=== PATIENT | female | born 1980 | race Caucasian/White ===

== ENCOUNTER → 2017-09-07 | Outpatient (CLI) | payer OTHER ==
[~2017-09-07] MED LIST: ALBU3IS INH; ALBU90OI INH; ALBU90OI6 INH; ALPR.5 PO; ALPR1 PO; ATOR80 PO; BISA5EC PO; BUDE.25 NEB; BUDE6HFA INH; BUTASPCAFT PO; Bactroban22 GM TOP; Benadryl 50 mg50 MG PO; CHOL10002 PO; CIPR250 PO; CLIN150 PO; CLIN300 PO; CLON.5 PO; CYCL10 PO; Cleocin HCl300 MG PO; DULO60 PO; Duoneb 2.5-0.5 M3 ML INH; ENOX40I SC; ESTR.1TPW TD; ESTR2 PO; FURO20 PO; GABA100; HYDACE10B PO; HYDMOR2 PO; HYDMOR4 PO; IBUP600 PO; IBUP800 PO; K-Dur20 MEQ PO; KETO10 PO; LAMO100 PO; LATUDA20 MG PO; LISHYD2025 PO; LORTAB 10-3251 EACH PO; Lasix20 MG PO; METF500; METF500C PO; METFORMIN HCL500 MG PO; Mirtazapine7.5 MG PO; NAPR500 PO; Nicorette4 MG PO; OLAN5 PO; OXYC5 PO; POLTRIOPSO OU; POTCHL10ER PO; POTCHL20ER PO; PRAZ1 PO; PRAZ2 PO; PRED10 PO; PROP10 PO; Percocet 5-3251 EACH PO; Prednisone20 MG PO; SERT100; SERT100 PO; SERT50; SERT50 PO; SULTRIDS; Silvadene20 GM TOP; TOBR.3OPSO LEFTEYE; TOPI50 PO; TOPIRAMATE ER50 MG PO; TRAM50; TRAM50 PO; TRIA15CR3; Tamiflu75 MG PO; Ultram50 MG PO; VENL75ER PO; Ventolin Soln3 ML INH; XARELTO20 MG PO; Zithromax250 MG PO; Zofran Odt4 MG SL; [UNRECOGNIZED DRUG - OTHER] TOP
[2017-09-09 12:38] LABS: HPV Genotype 16 Not Detected (NOTDET); HPV Genotype 18 Not Detected (NOTDET)
[2017-09-13 20:27] LABS: HPV High Risk Other Not Detected (NOTDET)
== END | disposition home or self-care (01) ==
LOC: LAB 16:07
PROVIDERS: Obstetrics & Gynecology
DX: Z01.419 Encounter for gynecological examination (general) (routine) without abnormal findings (principal)
CPT/HCPCS: 87624; G0123

== ENCOUNTER → 2018-03-17 | Outpatient (CLI) | payer OTHER ==
[~2018-03-17] MED LIST changes: -ALPR.5 PO; -BUDE6HFA INH; -DULO60 PO; -LAMO100 PO; -LATUDA20 MG PO; -METF500C PO; -PRAZ1 PO; -TRIA15CR3; -[UNRECOGNIZED DRUG - OTHER] TOP
== END ==
LOC: LAB 09:41 → LAB SHORT 09:41
PROVIDERS: Nurse Practitioner Family
DX: E24.9 Cushing's syndrome, unspecified (principal); E66.01 Morbid (severe) obesity due to excess calories
CPT/HCPCS: 81050

== ENCOUNTER → 2018-03-20 | Outpatient (CLI) | payer OTHER ==
[2018-03-20 10:52] LABS: U Amphetamine Screen Not Detected; U Barbituate Screen Not Detected; U Benzodiazapine Screen Not Detected; U Buprenorphine Screen Not Detected; U Cannabinoids Screen DETECTED; U Cocaine Screen Not Detected; U Methadone Screen Not Detected; U Methamphetamine Screen Not Detected; U Opiates Screen Not Detected; U Oxycodone Screen Not Detected; U Phencyclidine Screen Not Detected; U Propoxyphene Screen Not Detected
== END ==
LOC: OLS 08:30 → LAB SHORT 08:30
PROVIDERS: Psychiatry & Neurology Psychiatry
DX: Z51.81 Encounter for therapeutic drug level monitoring (principal); Z79.899 Other long term (current) drug therapy

== ENCOUNTER 2018-03-27 00:31 | Day surgery (SDC) | payer OTHER ==
[2018-03-27] MEDS ORDERED: BUDE6HFA INH (09:09)
[2018-03-27] MEDS ORDERED: METF500C PO (09:10)
[2018-03-27] MEDS ORDERED: CYCL10 PO (09:10)
[2018-03-27] MEDS ORDERED: TRIA15CR3 (09:10)
[2018-03-27] MEDS ORDERED: ALPR.5 PO (09:11)
[2018-03-27] MEDS ORDERED: DULO60 PO (09:12)
[2018-03-27] MEDS ORDERED: LAMO100 PO (09:12)
[2018-03-27] MEDS ORDERED: [UNRECOGNIZED DRUG - OTHER] TOP (09:15)
[2018-03-27] MEDS ORDERED: PRAZ1 PO (09:16)
[2018-03-27] MEDS ORDERED: LATUDA20 MG PO (09:16)
== END 2018-03-27 08:53 | disposition home or self-care (01) ==
LOC: ATC 00:31
DX: E24.9 Cushing's syndrome, unspecified (principal); E66.01 Morbid (severe) obesity due to excess calories; I10 Essential (primary) hypertension; E78.00 Pure hypercholesterolemia, unspecified; J45.909 Unspecified asthma, uncomplicated; F31.9 Bipolar disorder, unspecified
CPT/HCPCS: 36415; 80400; 82533; 96372; J0834

== ENCOUNTER 2018-09-21 14:11 | Inpatient (IN) | payer OTHER ==
[~2018-09-21] VITALS: Ht 170.2 cm; Wt 169.5 kg
[~2018-09-21 14:11] MED LIST changes: +ALPR.5 PO; +BUDE6HFA INH; +DULO60 PO; +LAMO100 PO; +LATUDA20 MG PO; +METF500C PO; -POTCHL10ER PO; +PRAZ1 PO; +TRIA15CR3; +ZESTORETIC 20-1 EAC1 PO; +[UNRECOGNIZED DRUG - OTHER] TOP
[2018-09-21 16:13] LABS: BASOPHILS ABSOLUTE AUTO 0.03 K/mm3 (0.00-0.23); BASOPHILS PERCENT AUTO 0 % (0-2); EOSINOPHILS ABSOLUTE AUTO 0.13 K/mm3 (0.00-0.68); EOSINOPHILS PERCENT AUTO 2 % (0-6); Hematocrit 46.9 % (33.0-51.0); Hemoglobin 15.6 g/dL (11.5-16.0); IMMATURE GRAN ABSOLUTE AUTO 0.03 K/mm3 (0.00-0.10); IMMATURE GRAN PERCENT AUTO 0 % (0-1); LYMPHOCYTES ABSOLUTE AUTO 2.64 K/mm3 (0.84-5.20); LYMPHOCYTES PERCENT AUTO 37 % (21-46); MONOCYTES ABSOLUTE AUTO 0.34 K/mm3 (0.16-1.47); MONOCYTES PERCENT AUTO 5 % (4-13); Mean Corpuscular HGB Conc 33.3 g/dL (31.5-36.5); Mean Corpuscular Volume 96 fL (80-100); Mean Platelet Volume 10.9 fL (9.1-12.4); NEUTROPHILS ABSOLUTE AUTO 4.02 K/mm3 (1.96-9.15); NEUTROPHILS PERCENT AUTO 56 % (41-73); Platelet Count 168 K/mm3 (150-400); RDW Coefficient Variation 13.6 % (11.7-14.2); RDW Standard Deviation 48.2 fL (35.1-46.3); Red Blood Cell Count 4.88 M/mm3 (3.80-5.20); White Blood Cell Count 7.19 K/mm3 (4.00-11.30)
[2018-09-21 16:41] LABS: Alanine Aminotransfer (ALT/SGP 46 U/L (12-78); Albumin, Blood 3.4 g/dL (3.4-5.0); Albumin/Globulin Ratio 0.9 (0.8-1.8); Alk Phos 48 U/L (50-136); Anion Gap 7 mmol/L (6-16); Aspartate Aminotrans (AST/SGOT 30 U/L (12-37); Bilirubin, Total 0.2 mg/dL (0.1-1.0); Blood Urea Nitrogen 13 mg/dL (8-24); Bun/Creatinine Ratio 17.4 (12.0-20.0); CO2, Blood 25 mmol/L (21-32); Chloride, Blood 103 mmol/L (98-108); Creatinine, Blood 0.75 mg/dL (0.40-1.00); Globulin, Blood 3.9 g/dL (2.2-4.0); Glomerular Filtration Rate >60 (60-); Glucose, Blood 89 mg/dL (70-99); Potassium, Blood 4.2 mmol/L (3.5-5.5); Sodium, Blood 135 mmol/L (136-145); Total Protein, Blood 7.3 g/dL (6.4-8.2)
[2018-09-21] MEDS ORDERED: FLUO10 PO (21:52)
[2018-09-21] MEDS ORDERED: QUET200 PO (21:53)
--- NOTE | 2018-09-22 00:34 | NUR ---
2156 PT ARRIVED TO ROOM FROM ER IN STABLE CONDITION. REPORTS PAIN IN R GREAT TOE. WILL GIVE MEDS ORDERED AND EVAL FOR EFFECT. R GREAT TOE IS PURPLE. NO OTHER APPARENT SIGNS OF DISTRESS. CALL LIGHT IS IN REACH.
--- NOTE | 2018-09-22 00:38 | NUR ---
PT ASKING IF WE CAN CALL THE DR TO GET SOMETHING MORE FOR PAIN, HOWEVER I EXPLAINED TO HER THAT SHE HAS FENTANYL THAT SHE COULD HAVE RIGHT NOW. ADMINISTERED FENTANYL. PT WANTS TO KNOW AT WHAT POINT WE COULD CALL THE DR FOR SOMETHING MORE FOR THE PAIN, STATES THE FENTANYL IS JUST NOT DOING ENOUGH FOR THE PAIN. I EXPLAINED THAT SHE CURRENTLY HAS 2 DIFFERENT PAIN MEDICATIONS ORDERED AND THAT IF SHE HAD ALREADY TAKEN BOTH AND IT WAS NOT GOING TO BE TIME AGAIN TO TAKE THEM WITHIN A REASONABLE AMOUNT OF TIME AND HER PAIN WAS A SIGNIFICANTLY HIGH NUMBER THEN WE WOULD CALL. I ALSO WENT OVER THE PAIN SCALE WITH HER WHEN SHE FIRST ARRIVED, I SHOWED HER THE PAIN SCALE FACES ON HER BOARD IN HER ROOM. SHE WAS REPORTING A 9 OR 10 OUT OF PAIN BUT I EXPAINED HOW MUCH PAIN, AND WHAT HER FACE WOULD LOOK LIKE IF IT WAS A 10 VS 0 BEING NONE. I TOLD HER THAT ME LOOKING AT HER FACE SHE LOOKED LIKE ABOUT AN 8 FOR THE FACE SCALE AND NOT QUITE THE SEVERE FACE OF A 10, SHE AGREED THAT IT WAS NOT QUITE SEVERE ENOUGH FOR HER TO CALL IT A 10. SHE DECIDED THAT A 5 WOULD BE THE NUMBER SHE WOULD FEEL LIKE SHE NEEDED SOMETHING FOR PAIN AND BELOW THAT WOULD BE TOLERABLE, I ASKED HER TO CALL ME WHEN IT GOT TO A 4. WILL CONT TO MONITOR PT. NO OTHER APPARENT SIGNS OF DISTRESS. CALL LIGHT IS IN REACH.
--- NOTE | 2018-09-22 00:45 | NUR ---
0014 PT REQUESTED AND RECIEVED PAIN MEDICATION. PT ASKED ABOUT CALLING THE DR AGAIN FOR SOMETHING MORE FOR HER PAIN. SHE DESCRIBES IT A "BURNING" PAIN. I LET HER KNOW THAT SOON SOMEONE ELSE CALLED FOR SOMETHING URGENT THAT I WOULD JOIN THAT CALL TO TALK TO THE DR. PT HAS 2 PAIN MEDS ORDERED, SOMETHING MORE IS NOT URGENT AT THIS TIME. WILL MONITOR FOR EFFECT. NO OTHER APPARENT SIGNS OF DISTRESS. CALL LIGHT IS IN REACH.
--- NOTE | 2018-09-22 02:08 | NUR ---
PT LYING IN BED,EYES CLOSED, APPEARS TO BE RESTING. BREATHING IS EVEN, UNLABORED. NO APPARENT SIGNS OF DISTRESS. CALL LIGHT IS IN REACH.
--- NOTE | 2018-09-22 03:41 | NUR ---
PT REQUESTED AND RECIEVED PAIN MEDICATION AT 0306. PT IS NOW CURRENTLY LYING IN BED, EYES CLOSED, APPEARS TO BE RESTING. BREATHING IS EVEN, UNLABORED. NO APPARENT SIGNS OF DISTRESS. CALL LIGHT IS IN REACH.
--- NOTE | 2018-09-22 03:41 | NUR ---
PT IS AAO X 4, ON RA. REPORTS PAIN IN R GREAT TOE, HAS RECIEVED MULT DOSES OF PERCOCET AND FENTANYL. BS WAS 127. DR BIRD IS CONSULTING, POSS PROCEDURE TODAY.
[2018-09-22 05:16] LABS: Hematocrit 45.8 % (33.0-51.0); Hemoglobin 14.5 g/dL (11.5-16.0); Mean Corpuscular HGB 30.9 pg (26.0-34.0); Mean Corpuscular HGB Conc 31.7 g/dL (31.5-36.5); Mean Corpuscular Volume 98 fL (80-100); Mean Platelet Volume 11.4 fL (9.1-12.4); Platelet Count 141 K/mm3 (150-400); RDW Coefficient Variation 13.7 % (11.7-14.2); RDW Standard Deviation 48.8 fL (35.1-46.3); Red Blood Cell Count 4.69 M/mm3 (3.80-5.20); White Blood Cell Count 5.89 K/mm3 (4.00-11.30)
[2018-09-22 05:35] LABS: International Normalized Ratio 0.97
--- NOTE | 2018-09-22 05:39 | NUR ---
0444 PT REQUESTED AND RECIEVED PAIN MEDS, WILL EVAL FOR EFFECT. NO OTHER APPARENT SIGNS OF DISTRESS. CALL LIGHT IS IN REACH.
[2018-09-22 05:52] LABS: Anion Gap 7 mmol/L (6-16); Blood Urea Nitrogen 17 mg/dL (8-24); Bun/Creatinine Ratio 22.1 (12.0-20.0); CO2, Blood 25 mmol/L (21-32); Chloride, Blood 105 mmol/L (98-108); Creatinine, Blood 0.77 mg/dL (0.40-1.00); Glomerular Filtration Rate >60 (60-); Glucose, Blood 101 mg/dL (70-99); Potassium, Blood 4.4 mmol/L (3.5-5.5); Sodium, Blood 137 mmol/L (136-145)
--- NOTE | 2018-09-22 05:53 | NUR ---
PT LYING IN BED, EYES CLOSED, APPEARS TO BE RESTING. BREATHING IS EVEN, UNLABORED. NO APPARENT SIGNS OF DISTRESS. CALL LIGHT IS IN REACH. NO OTHER CHANGES THIS SHIFT.
--- NOTE | 2018-09-22 06:47 | NUR ---
0669 PT REQUESTED AND RECIEVED PAIN MEDICATION, WILL EVAL FOR EFFECT. NO OTHER APPARENT SIGNS OF DISTRESS. CALL LIGHT IS IN REACH.
--- NOTE | 2018-09-22 11:35 | NUR ---
PATIENT DESTATS TO HIGH 80'S WHILE ASLEEP. CONT PULSE OX IS ON, CPAP AT THE BEDSIDE BUT REFUSED TO BE WORN BY THE PATIENT STATES THAT IT MAKES HER ANXIOUS. PATIENT ASKED TO HAVE THE CONTINUOUS PULSE OX D/C IT KEPT BEEPING WHILE SHE WAS ASLEEP. RN DISCUSSED THE RISKS OF NOT USING THE CONTINUOUS PULSE OX. PATIENT SIGNED REFUSAL FORM. RN WILL CONTINUE TO MONITOR.
--- NOTE | 2018-09-22 13:40 | NUR ---
Echocardiogram using 9.0ml of agitated saline contrast performed.
--- NOTE | 2018-09-22 15:15 | NUR ---
PATIENT IS VERY ANXIOUS. CONSIDERING LEAVING AMA. BP 186/101. DR CHEUNG NOTIFIED, SAID TO STOP THE HEPARIN DRIP TO ALLOW PATIENT TO GO OUTSIDE IF SHE PLEASES TO SMOKE. FAMILY AT THE BEDSIDE.
--- NOTE | 2018-09-22 16:09 | NUR ---
PHARMACY NOTIFIED THAT PATIENT WOULD BE DISCONNECTED FROM HEPARIN DRIP PER DR. CHEUNG TO GO OUTSIDE. PATIENT FAMILY TOOK PATIENT VIA WHEELCHAIR.
--- NOTE | 2018-09-22 17:56 | NUR ---
SHIFT SUMMARY PATIENT A&O X4, INDEPENDENT IN THE ROOM. RIGHT BIG TOE IS DARK PURPLE IN COLOR. PATIENT HAS COMPLAINTS OF SEVERE PAIN IN THIS TOE THROUGHOUT THE SHIFT. RN MEDICATED PER EMAR. PATIENT VOMITTED X1 THIS SHIFT RN MEDICATED PER E NOV. HEPARIN DRIP @ 39.9 ML/HR. CLEAR LIQUIDS. PATIENT HAS BEEN EXTREMELY ANXIOUS THIS SHIFT, AT ONE POINT WANTED TO LEAVE AMA BECAUSE SHE WANTED TO GO OUTSIDE TO SMOKE. REFUSED NICOTINE PATCH. 02 @ 2 L NC, PATIENT TAKES OFF THROUGHOUT SHIFT. O2 SATS DROP TO MID TO HIGH 80S WHEN LYING DOWN. REFUSES TO WEAR CPAP, REFUSAL FOR CONTINUOUS PULSE OX SIGNED. BREATHING TREATMENTS PER RT. PATIENT CURRENTLY RESTING. CALL LIGHT WITHIN REACH. NO ACUTE CHANGES. RN WILL CONTINUE TO MONITOR.
--- NOTE | 2018-09-23 06:16 | NUR ---
SHIFT SUMMARY PT CONTINUED TO HAVE SIGNIFICANT PAIN IN TOE. PT REPORTED 10/10 EARLY IN THE SHIFT. PT RESPONDED WELL TO TX. PT DID HAVE EPISODE OF N/V THAT WAS RELIEVED PER EMAR. PT STATES PAIN WOKE HER UP NUMEROUS TIMES THROUGH THE NIGHT. PT IS CURRENTLY BREATHING EASY AND RESTING.
[2018-09-23 08:33] LABS: BASOPHILS ABSOLUTE AUTO 0.02 K/mm3 (0.00-0.23); BASOPHILS PERCENT AUTO 0 % (0-2); EOSINOPHILS ABSOLUTE AUTO 0.08 K/mm3 (0.00-0.68); EOSINOPHILS PERCENT AUTO 1 % (0-6); Hematocrit 43.9 % (33.0-51.0); Hemoglobin 14.3 g/dL (11.5-16.0); IMMATURE GRAN ABSOLUTE AUTO 0.03 K/mm3 (0.00-0.10); IMMATURE GRAN PERCENT AUTO 1 % (0-1); LYMPHOCYTES ABSOLUTE AUTO 1.87 K/mm3 (0.84-5.20); LYMPHOCYTES PERCENT AUTO 33 % (21-46); MONOCYTES ABSOLUTE AUTO 0.35 K/mm3 (0.16-1.47); MONOCYTES PERCENT AUTO 6 % (4-13); Mean Corpuscular HGB 31.4 pg (26.0-34.0); Mean Corpuscular HGB Conc 32.6 g/dL (31.5-36.5); Mean Corpuscular Volume 96 fL (80-100); NEUTROPHILS PERCENT AUTO 58 % (41-73); Platelet Count 137 K/mm3 (150-400); RDW Coefficient Variation 13.5 % (11.7-14.2); RDW Standard Deviation 47.7 fL (35.1-46.3); Red Blood Cell Count 4.56 M/mm3 (3.80-5.20); White Blood Cell Count 5.65 K/mm3 (4.00-11.30)
[2018-09-23] MEDS ORDERED: XARELTO20 MG PO (11:29)
[2018-09-23] MEDS ORDERED: CLOP75 PO (11:29)
--- NOTE | 2018-09-23 12:12 | NUR ---
PATIENT DISCHARGE: PATIENT DISCHARGED TO HOME THIS SHIFT. MEDICATION RECONCILIATION COMPLETED; MED L[facility] [place]. DISCHARGE EDUCATION COMPLETED WITH PATIENT AND FAMILY. PATIENT TRANSPORTED TO EXIT BY WHEELCHAIR AT 1209. PATIENT DEPARTED [facility] VIA PRIVATE AUTO.
[2018-10-10] MEDS ORDERED: Monodox100 MG PO (13:49)
== END 2018-09-23 12:06 | disposition home or self-care (01) | DRG 300 ==
LOC: ER 14:11 → MEDS 19:36 → ENPENDDIS 09-23 11:00 → MEDS 09-23 12:06
PROVIDERS: Hospitalist; Nurse Practitioner Acute Care; Physician Assistant; ADMIT Family Medicine
DX: E11.51 Type 2 diabetes mellitus with diabetic peripheral angiopathy without gangrene (principal); Z68.43 Body mass index [BMI] 50.0-59.9, adult; I74.3 Embolism and thrombosis of arteries of the lower extremities; I99.8 Other disorder of circulatory system; F17.210 Nicotine dependence, cigarettes, uncomplicated; I10 Essential (primary) hypertension; E66.01 Morbid (severe) obesity due to excess calories; F32.9 Major depressive disorder, single episode, unspecified; F43.10 Post-traumatic stress disorder, unspecified; F41.9 Anxiety disorder, unspecified; J44.9 Chronic obstructive pulmonary disease, unspecified; G47.33 Obstructive sleep apnea (adult) (pediatric); Z23 Encounter for immunization; Z79.84 Long term (current) use of oral hypoglycemic drugs; Z79.1 Long term (current) use of non-steroidal anti-inflammatories (NSAID); Z79.890 Hormone replacement therapy; Z79.51 Long term (current) use of inhaled steroids; Z79.899 Other long term (current) drug therapy; Z88.1 Allergy status to other antibiotic agents; Z88.5 Allergy status to narcotic agent; Z88.0 Allergy status to penicillin; Z88.2 Allergy status to sulfonamides; Z88.8 Allergy status to other drugs, medicaments and biological substances; Z90.710 Acquired absence of both cervix and uterus
CPT/HCPCS: 36415; 80048; 80053; 82947; 83605; 85025; 85027; 85610; 85730; 90686; 93005; 93010; 93306; 93922; 93926; 94640; 94660; 94760; 94762; 96374; 96375; 96376; 99285-25; J1170; J1644; J2405; J3010

== ENCOUNTER 2018-10-11 18:36 | Inpatient (IN) | payer OTHER ==
[~2018-10-11] VITALS: Ht 170.2 cm; Wt 173.9 kg
[~2018-10-11 18:36] MED LIST changes: +CLOP75 PO; +FLUO10 PO; +Monodox100 MG PO; +QUET200 PO
[2018-10-11 19:21] LABS: BASOPHILS ABSOLUTE AUTO 0.01 K/mm3 (0.00-0.23); BASOPHILS PERCENT AUTO 0 % (0-2); EOSINOPHILS ABSOLUTE AUTO 0.01 K/mm3 (0.00-0.68); EOSINOPHILS PERCENT AUTO 0 % (0-6); Hematocrit 40.4 % (33.0-51.0); Hemoglobin 13.5 g/dL (11.5-16.0); IMMATURE GRAN ABSOLUTE AUTO 0.28 K/mm3 (0.00-0.10); IMMATURE GRAN PERCENT AUTO 2 % (0-1); LYMPHOCYTES ABSOLUTE AUTO 0.83 K/mm3 (0.84-5.20); LYMPHOCYTES PERCENT AUTO 7 % (21-46); MONOCYTES ABSOLUTE AUTO 0.93 K/mm3 (0.16-1.47); MONOCYTES PERCENT AUTO 8 % (4-13); Mean Corpuscular HGB 31.3 pg (26.0-34.0); Mean Corpuscular HGB Conc 33.4 g/dL (31.5-36.5); Mean Corpuscular Volume 94 fL (80-100); Mean Platelet Volume 11.1 fL (9.1-12.4); NEUTROPHILS ABSOLUTE AUTO 10.17 K/mm3 (1.96-9.15); NEUTROPHILS PERCENT AUTO 83 % (41-73); Platelet Count 132 K/mm3 (150-400); RDW Coefficient Variation 13.5 % (11.7-14.2); RDW Standard Deviation 46.9 fL (35.1-46.3); Red Blood Cell Count 4.31 M/mm3 (3.80-5.20); White Blood Cell Count 12.23 K/mm3 (4.00-11.30)
[2018-10-11 19:33] LABS: Albumin/Globulin Ratio 0.7 (0.8-1.8); Bilirubin, Total 1.3 mg/dL (0.1-1.0); Bun/Creatinine Ratio 12.8 (12.0-20.0); Creatinine, Blood 1.17 mg/dL (0.40-1.00); Globulin, Blood 4.3 g/dL (2.2-4.0); Potassium, Blood 3.6 mmol/L (3.5-5.5); Total Protein, Blood 7.3 g/dL (6.4-8.2)
--- NOTE | 2018-10-11 23:45 | NUR ---
PT ARRIVAL. PT ARRIVED ON UNIT APROX 2333, PT WAS ABLE TO SELF TRANSFER FROM [place] TO BED BUT IT WAS VERY DIFFICULT AND PAINFUL. PT WAS ADMITTED DUE TO A LARGE ABCESS/CELLULITTIS TO HER LEFT UPPER THIGH/GROIN AREA. TELE WAS PLACED, NSR IN THE 80'S PER [employer] JOINTER. PT'S BP 155/95. TRACE EDEMA NOTED TO THE PT'S BLE. L/S SLIGHT WHEEZES HEARD T/O, PT IS ON RA WITH STATS >90%. RESPERAITIONS ARE EVEN AND UNLABORED. BT PRESENT AND HYPERACTIVE, ABD IS SOFT AND NONTENDER TO PALP. PT IS IN CONTACT ISO FOR R/O C.DIFF DUE TO PT'S REPORT OF DIARRHEA AT HOME AND R/O MRSA DUE TO A HISTORY OF MRSA IN A WOUND IN 2000. MRSA SWAB WAS NOT ABLE TO BE OBTAINED DUE TO THE FACT THE PT HAD ALREADY BEEN GIVEN IV ANTIBIOTICS IN THE ED. CALL LIGHT IN REACH, BED IS LOCKED AND LOW, WILL CONTINUE TO MONITOR.
[2018-10-12 04:19] LABS: BASOPHILS ABSOLUTE AUTO 0.01 K/mm3 (0.00-0.23); BASOPHILS PERCENT AUTO 0 % (0-2); EOSINOPHILS ABSOLUTE AUTO 0.03 K/mm3 (0.00-0.68); EOSINOPHILS PERCENT AUTO 0 % (0-6); Hematocrit 36.8 % (33.0-51.0); IMMATURE GRAN ABSOLUTE AUTO 0.16 K/mm3 (0.00-0.10); IMMATURE GRAN PERCENT AUTO 2 % (0-1); LYMPHOCYTES ABSOLUTE AUTO 0.95 K/mm3 (0.84-5.20); LYMPHOCYTES PERCENT AUTO 10 % (21-46); MONOCYTES ABSOLUTE AUTO 0.65 K/mm3 (0.16-1.47); MONOCYTES PERCENT AUTO 7 % (4-13); Mean Corpuscular HGB 31.5 pg (26.0-34.0); Mean Corpuscular HGB Conc 32.6 g/dL (31.5-36.5); Mean Platelet Volume 11.1 fL (9.1-12.4); NEUTROPHILS ABSOLUTE AUTO 8.25 K/mm3 (1.96-9.15); NEUTROPHILS PERCENT AUTO 82 % (41-73); Platelet Count 124 K/mm3 (150-400); RDW Coefficient Variation 13.5 % (11.7-14.2); RDW Standard Deviation 47.8 fL (35.1-46.3); Red Blood Cell Count 3.81 M/mm3 (3.80-5.20); White Blood Cell Count 10.05 K/mm3 (4.00-11.30)
[2018-10-12 04:23] LABS: Mean Corpuscular Volume 97 fL (80-100)
[2018-10-12 04:38] LABS: Anion Gap 11 mmol/L (6-16); Blood Urea Nitrogen 15 mg/dL (8-24); Bun/Creatinine Ratio 14.4 (12.0-20.0); CO2, Blood 24 mmol/L (21-32); Calcium, Blood 7.7 mg/dL (8.5-10.1); Chloride, Blood 103 mmol/L (98-108); Creatinine, Blood 1.04 mg/dL (0.40-1.00); Glomerular Filtration Rate >60 (60-); Glucose, Blood 136 mg/dL (70-99); Potassium, Blood 3.3 mmol/L (3.5-5.5); Sodium, Blood 138 mmol/L (136-145)
--- NOTE | 2018-10-12 05:37 | NUR ---
SHIFT SUMMARY. NO ACUTE CHANGES NOTED THIS SHIFT. PT COMPLAINS OF SEVERE PAIN TO HER LEFT GROIN AREA WITH TOUCH OR MOVEMENT. PT'S VS HAVE BEEN STABLE T/O SHIFT. PT DENIES ANY CHEST PAIN/PRESSURE, N/V OR SOB. PT WAS ENCOURAGED TO HAVE FAMILY BRING IN HER HOME CPAP WHILE HERE. PT HAS NOT HAD A BM SINCE ADMIT, UNABLE TO R/O C.DIFF AT THIS TIME. CALL LIGHT IN REACH, BED IS LOCKED AND LOW WILL CONTINUE TO MONITOR UNTIL REPORT IS GIVEN TO ONCOMING RN.
--- NOTE | 2018-10-12 11:00 | NUR ---
Initial palliative care consult: Kaitlyn is a 38 year old with a history of asthma, COPD, back surgeries x 2, DM, morbid obesity, MARTHA, depression and anxiety. She is admitted to PCU for cellulitis of the left groin/upper thigh area. Just prior to my visit, Dr. Cohen had assessed Kaitlyn and pushed on the area of cellulitis. Kaitlyn was in tears and c/o being very painful when this production underwriter entered the room. Nursing notifed and will medicate pt for pain. Kaitlyn's adult son, Jas, is at her bedside. Kaitlyn reports that her right great toe is a bluish/purple color and that she was scheduled to have a procedure at the [facility] at 1100 today which has been postponed. Kaitlyn is agreeable with some conversation while she is painful to help distract her. She has had a powerglide placed to her KERRIE this morning. Current plan is for antibiotics, at this time there is no abcess per pt's report from MD visit. Once Kaitlyn was medicated for pain, she became very sleepy, so this PC visit was cut short as she was falling asleep. PC will continue to follow pt for symptom management and chronic disease management.
--- NOTE | 2018-10-12 14:49 | NUR ---
REPORT TO MAK PARKER IN ICU. PT IS GOING TO ICU 2 FROM SURGERY.
--- NOTE | 2018-10-12 15:06 | NUR ---
PT WITH KNOWN ANXIETY DISORDER-BECAME EXCITABLE UPON INITIAL ENTRY INTO LAB WHEN MULTIPLE STAFF MEMBERS CAME TO PT TO PREP FOR PROCEDURE (E.G., PLACE EKG MONITORING, BP MONITORING, PULSE OXIMETRY, CPAP MASK PLACEMENT, ETC.) HAS KNOWN CELLULITIS TO L INNER THIGH-MARKED. BODY HABITUS WITH MULTIPLE LARGE FOLDS TO LOWER ABDOMEN, REQUIRING TAPED RETRACTION FOR BILATERAL FEMORAL ACCESS. ISABELA-CROSSING TAPE ANCHORED BENEATH PATIENT TO UNDER SURFACE OF PLATFORM. LARGE TORSO BULK WITH CONSTRICTING CROSS-TAPE NECESSITATED NC TO MOUTH WITH HIGH FLOW DUE TO PERSONAL CPAP MACHINE WITHOUT OXYGEN PORT. PT HIGHLY SENSITIVE TO TOUCH, TO ALL AREAS NOT JUST CELLULITUS AREAS. C/O PAIN WITH SIMPLE TOUCH SUCH LIFTING L LEG AWAY FROM TABLETOP PLATFORM EDGE TO PROTECT FOOT. PAIN WITH PLACEMENT OF DRAPE DESPITE VERSED 3 MG IV. ACCESS ATTEMPTED WITH PORTABLE US MACHINE BUT PICTURE QUALITY WAS INADEQUATE, REQUIRING US TECH WITH UPRIGHT, FULL SIZE MACHINE. DESPITE LOCAL ANESTHETIC, PT REACTED WITH OCCASIONAL SCREAMS OF PAIN DURING ADDITIONAL SKIN RETRACTION FOR NEEDLE PLACEMENT TO L FEMORAL A. DIFFICULT TO CONSOLE VERBALLY OR MEDICALLY WITH CONTINUED VERSED AND FENTANYL DOSING. ATIVAN PROVIDED WITH ADDITIONAL SUPPLEMENTS OF VERSED, NEEDED. MINIMAL SITE/SKIN CONTACT ALLOWED PATIENT TO MAXIMIZE SEDATION HOWEVER HR INCREASED STEADILY FROM 85 TO >100 DURING COURSE OF PROCEDURE WITH EPISODES OF AGGITATION. BP STEADILY INCREASED WITH SBP > 200 AND DBP > 100 - TREATED PERIODICALLY WITH HYDRALAZINE DOSING OF 5-15 MG IV PER DOSE. PROCEDURE COMPLETED WITHOUT KNOWN COMPLICATION(S). PT AROUSEABLE TO LIGHT STIMULATION BUT SLEEPS WITH SNORE WHEN UNDISTURBED. WHEN AWAKE, SPEECH IS COHERENT AND APPROPRIATE TO CONTEXT OF SITUATION.
--- NOTE | 2018-10-12 18:59 | NUR ---
END OF SHIFT PT HAS NO PAIN AT THIS TIME, VSS, PT GROIN SITE WNL, PT USES BED BARRIOS, PT HAS HAD AN ELEVATED TEMP
--- NOTE | 2018-10-12 19:52 | NUR ---
Verbal permission to participate in care on 10/12/18.
--- NOTE | 2018-10-12 20:00 | NUR ---
ASSUMED CARE OF PT AT 1900. REPORT RECEIVED AT BEDSIDE. PT GROIN SITE CHECKED WITH OFFGOING RN. HAVE CHECKED PERIPHERAL PULSES BY DOPPLER. OF NOTE PT HAS EDEMATOUS AREA AT INSIDE LEFT THIGH WITH ERRYTHEMIA, WARM TO THE TOUGH. PT STATES AREA IS VERY TENDER TO THE TOUCH. NO HEMATOMA OR OOZING ROM LEFT GROIN ACCESS SITE. PT NEEDS TO HAVE REINFORCED TEACHING ON HER LIMITATIONS WITH LEFT GROIN ACCESS SITE. WILL REVIEW CHART AND PLAN OF CARE FOR THIS PT.
[2018-10-12 23:14] LABS: Hematocrit 37.1 % (33.0-51.0); Hemoglobin 12.1 g/dL (11.5-16.0)
--- NOTE | 2018-10-13 | NUR ---
PT WAS MEDICATED WITH A NORCO 5/325. PT STATES THAT NORCO "NEVER WORKS FOR ME" AND REQUESTS THE DILAUDID. PT STATES THAT THE AREA OF CELLULITIS IS BURNING AND THAT SHE CAN'T STAND THE PAIN. BECOMES VERY ANXIOUS AND COMPLAINS OF INCREASING PAIN AT LEFT INNER THIGH AREA. CONTINUES WITH SWELLING TO SITE. DOES NOT CORRESPOND TO A POTENTIAL FEMORAL BLEED. DID CALL [facility] AND REQUESTED TO DO STAT H/H. THIS ORDER RECEIVED. NO CHANGE IN H/H COMPARED TO PREVIOUS. WILL CONTINUE TO MONITOR SITE FOR S/S BLEED.
--- NOTE | 2018-10-13 05:45 | NUR ---
MEDICATED PT AGAIN WITH NORCO 5/325. PT STATES HER PAIN LEVEL WAS 9/10. HAVE DONE TEACHING ON PAIN MEDICATIONS AND NEEDING TO USE PO MEDS FOR PAIN SHE TOLERATES. PT REMAINS WITH EDEMA AT LEFT INNER THIGH CELLULITIS. NO CHANGES IN SIZE NOTED. DOPPLER PULSES TO LOWER EXTREMITIES. PT TO TRANSFER TO ROOM PCU 12. PT MADE AWARE AND IS ACCEPTING. REPORT GIVEN TO EKITH CAREY.
--- NOTE | 2018-10-13 06:02 | NUR ---
TRANSFER: REPORT RECIEVED FROM STACY PARKER ICU.
--- NOTE | 2018-10-13 06:37 | NUR ---
PATIENT ARRIVED TO [facility] VIA GURNEY FROM ICU AT APPROX 0550. PATIENT ABLE TO PIVOT TRANSFER FROM BED TO BED WITH 2 PERSON ASSIST. PATIENT ALERT AND ORIENTED, GROIN SITE REMAINS UNCHANGED PER STACY RN. NO NEW BLEEDING, HEMATOMAS OR DISCOLORATION NOTED. WILL CONTINUE TO MONITOR AND REPORT TO ONCAJIT DAVISON RN.
--- NOTE | 2018-10-13 19:57 | NUR ---
SHIFT SUMMARY Assumed care at 0700. Report recieved from Mahsa PARKER. Shift assessment completed. Pt on room air. Pt tearful because she stated that she needed to pee and the aid encouraged BSC or bathroom and pt wanted to use the bedpan. Pt states using toilet is painful on her inner thigh. This RN had discussion with pt and encouraged her to use toilet or commode and she was using a toilet at home, before cellulitis treatment with pain medication and antibiotics. Additionally, the goal is to get her as close to her baseline level of functioning as a part of discharge planning. Pt verbalized understanding. Pt agreed to activity - up in chair for meals and using bathroom instead bedpan - if pain is managed to a tolerable level. Pt went on a walk around the 2nd floor with her friends, using a walker, and tolerated activity well. Groin site free of hematoma. Color, sensation, capillary refill, and distal pulses equal BLE. Report given to Mahsa PARKER.
[2018-10-14 04:33] LABS: BASOPHILS ABSOLUTE AUTO 0.02 K/mm3 (0.00-0.23); BASOPHILS PERCENT AUTO 0 % (0-2); EOSINOPHILS ABSOLUTE AUTO 0.05 K/mm3 (0.00-0.68); EOSINOPHILS PERCENT AUTO 1 % (0-6); Hematocrit 34.7 % (33.0-51.0); Hemoglobin 11.5 g/dL (11.5-16.0); IMMATURE GRAN ABSOLUTE AUTO 0.13 K/mm3 (0.00-0.10); IMMATURE GRAN PERCENT AUTO 2 % (0-1); LYMPHOCYTES ABSOLUTE AUTO 0.99 K/mm3 (0.84-5.20); LYMPHOCYTES PERCENT AUTO 12 % (21-46); MONOCYTES ABSOLUTE AUTO 0.53 K/mm3 (0.16-1.47); MONOCYTES PERCENT AUTO 6 % (4-13); Mean Corpuscular HGB 31.2 pg (26.0-34.0); Mean Corpuscular HGB Conc 33.1 g/dL (31.5-36.5); Mean Platelet Volume 11.2 fL (9.1-12.4); NEUTROPHILS ABSOLUTE AUTO 6.83 K/mm3 (1.96-9.15); NEUTROPHILS PERCENT AUTO 80 % (41-73); Platelet Count 152 K/mm3 (150-400); RDW Coefficient Variation 13.7 % (11.7-14.2); RDW Standard Deviation 47.3 fL (35.1-46.3); Red Blood Cell Count 3.69 M/mm3 (3.80-5.20); White Blood Cell Count 8.55 K/mm3 (4.00-11.30)
--- NOTE | 2018-10-14 04:35 | NUR ---
SHIFT SUMMARY: PATIENT DID BETTER WITH PAIN CONTROL THIS SHIFT, PATIENT HAD 1X DILAUDID AND 2 HOURS LATER 2 TABS OF NORCO (BOTH PER MD ORDER). PATIENT ABLE TO GO ALMOST 6 HOURS WIHTOUT ASKING FOR MORE PAIN MEDICATION. PATIENT AMBULATING TO BATHROOM WITH FWW AND NO ASSIST NECESSARY. DISCOLORATION AROUND CELLULITIS APPEARED TO BE SPREADING AT BEGINNING OF SHIFT AND NEW BORDERS MARKED. END OF SHIFT THE DISCOLORATION APPEARED TO BE IMPROVING. PATIENT BED LOW AND LOCKED WITH CLL LIGHT WITHIN REACH AND GOOD COMPLIANCE WITH USE.
[2018-10-14 04:37] LABS: Mean Corpuscular Volume 94 fL (80-100)
[2018-10-14 04:51] LABS: Bun/Creatinine Ratio 18.3 (12.0-20.0); Calcium, Blood 7.7 mg/dL (8.5-10.1); Creatinine, Blood 1.53 mg/dL (0.40-1.00); Potassium, Blood 3.7 mmol/L (3.5-5.5)
--- NOTE | 2018-10-14 15:00 | NUR ---
SHE IS EATING A LATE LUNCH. HER FAMILY VISITED FOR AN HOUR AND ARE NOW GONE. SHE HAS RECEIVED NORCO X2 AND IV DILAUDID X1 THIS SHIFT FOR THE PAIN IN HER L THIGH. THE DERESSING ON HER L GROIN IS D&I WHERE SHE HAD HER ANGIOGRAM. HER L THIGH AND GROIN IS SHINY RED AND SWOLLEN. THERE IS A FLUID BLISTER ON THE INNER UPPER THIGH THAT IS SEEPING CLEAR YELLOW FLUID. IT DRAINS ENOUGH TO MODERATELY SOIL THE PAD UNDER HER BOTTOM. EDEMA IS WORSE IN THE L LEG THAN THE RIGHT. HER OTHER COMPLAINT IS INTERMITTENT NAUSEA WITHOUT EMESIS. RHYS HAS BEEN GIVEN X1. SHE AMBULATED THE HALLS INDEPENDENTLY THIS AM AND HER FAMILY TOOK HER OUTSIDE IN THE W/C THIS AFTERNOON. SHE SAYS SHE HAS A NON-NICOTINE E-CIG. ANOTHER COMPLAINT IS H/A AND GASRTRIC REFLUX. ICEPACK HELPS HER HEAD AND A IRAIDA WAS GIVEN WITH SHORT TERM RELIEF. NOW I WILL MOVE HER TO RM 308 AND GIVE REPORT.
--- NOTE | 2018-10-14 16:27 | NUR ---
TRANSFERRED TO 308 AT 1540 WITH BELONGINGS. REPORT GIVEN TO SHANNA PARKER.
--- NOTE | 2018-10-14 16:33 | NUR ---
PCU 12 TRANSFER TO 308 PT ARRIVE TO ROOM APPROX 1500 VIA W/C. ABLE TO STAND & AMBULATE TO BED HOWEVER FAVORING L LEG. SHE IS DISTRAUGHT, TEARFUL. STATE LLE PAIN /. PRN DILAUDID 1MG IV & XANAX GIVEN, SHE STATE IMMEDIATE RELIEF, NO LONGER EMOTIONAL, CALM, WATCHING TV STATE "HEARTBURN" & POSSIBLE CONSTIPATION, PRN TUMS & MOM GIVEN. L THIGH REDNESS NOTED WITH MILD WEEPING AREA. DRSG L GROIN INTACT, R/T ANGIOGRAM & REVASCULARIZATION RLE/PT, NO CHART NOTES @ THIS TIME REGARDING PROCEDURE. ORIENTED PT TO ROOM & CALL SYSTEM. FLUIDS PROVIDED.
--- NOTE | 2018-10-15 04:46 | NUR ---
SHIFT SUMMARY: PT IS ALERT AND ORIENTED. PT IS CALM AND COOPERATIVE WITH CARE. PT CALLS APPROPRIATELY. PT IS A ONE PERSON ASSIST FOR TRANSFERS. FAMILY IN THE ROOM OVERNIGHT. PT REPORTS L. THIGH PAIN, MEDICATING PER EMAR. PT OUTSIDE ON SEVERAL OCCASIONS WITH FAMILY. PT DENIES NAUSEA, VOMITING, AND SOB. NO ACUTE CHANGES OR COMPLICATIONS OVERNIGHT. BED IN LOW POSITION, CALL LIGHT WITHIN REACH. WILL REPORT TO DAY NURSE.
[2018-10-15 08:50] LABS: Hemoglobin 10.7 g/dL (11.5-16.0); Mean Corpuscular HGB 30.8 pg (26.0-34.0); Mean Corpuscular HGB Conc 33.4 g/dL (31.5-36.5); Mean Corpuscular Volume 92 fL (80-100); Platelet Count 169 K/mm3 (150-400); RDW Coefficient Variation 13.6 % (11.7-14.2); RDW Standard Deviation 45.9 fL (35.1-46.3); Red Blood Cell Count 3.47 M/mm3 (3.80-5.20); White Blood Cell Count 7.98 K/mm3 (4.00-11.30)
[2018-10-15 09:05] LABS: Bun/Creatinine Ratio 22.5 (12.0-20.0); Calcium, Blood 8.8 mg/dL (8.5-10.1); Creatinine, Blood 1.2 mg/dL (0.40-1.00); Potassium, Blood 3.8 mmol/L (3.5-5.5)
[2018-10-15 13:26] LABS: BASOPHILS ABSOLUTE AUTO 0.02 K/mm3 (0.00-0.23); BASOPHILS PERCENT AUTO 0 % (0-2); EOSINOPHILS ABSOLUTE AUTO 0.03 K/mm3 (0.00-0.68); EOSINOPHILS PERCENT AUTO 0 % (0-6); Hematocrit 30.9 % (33.0-51.0); Hemoglobin 10.3 g/dL (11.5-16.0); IMMATURE GRAN ABSOLUTE AUTO 0.23 K/mm3 (0.00-0.10); IMMATURE GRAN PERCENT AUTO 3 % (0-1); LYMPHOCYTES ABSOLUTE AUTO 0.71 K/mm3 (0.84-5.20); LYMPHOCYTES PERCENT AUTO 9 % (21-46); MONOCYTES ABSOLUTE AUTO 0.48 K/mm3 (0.16-1.47); MONOCYTES PERCENT AUTO 6 % (4-13); Mean Corpuscular HGB Conc 33.3 g/dL (31.5-36.5); Mean Corpuscular Volume 93 fL (80-100); Mean Platelet Volume 10.9 fL (9.1-12.4); NEUTROPHILS ABSOLUTE AUTO 6.05 K/mm3 (1.96-9.15); NEUTROPHILS PERCENT AUTO 80 % (41-73); Platelet Count 171 K/mm3 (150-400); RDW Coefficient Variation 13.5 % (11.7-14.2); Red Blood Cell Count 3.32 M/mm3 (3.80-5.20); White Blood Cell Count 7.52 K/mm3 (4.00-11.30)
[2018-10-15 13:49] LABS: Alanine Aminotransfer (ALT/SGP 20 U/L (12-78); Albumin, Blood 1.8 g/dL (3.4-5.0); Albumin/Globulin Ratio 0.4 (0.8-1.8); Alk Phos 71 U/L (50-136); Anion Gap 9 mmol/L (6-16); Aspartate Aminotrans (AST/SGOT 38 U/L (12-37); Bilirubin, Total 0.5 mg/dL (0.1-1.0); Blood Urea Nitrogen 27 mg/dL (8-24); CO2, Blood 25 mmol/L (21-32); CPK Creatine Kinase 265 U/L (26-193); Calcium, Blood 8.9 mg/dL (8.5-10.1); Chloride, Blood 99 mmol/L (98-108); Creatinine, Blood 1.23 mg/dL (0.40-1.00); Globulin, Blood 4.4 g/dL (2.2-4.0); Glomerular Filtration Rate 52 (60-); Glucose, Blood 104 mg/dL (70-99); Potassium, Blood 3.8 mmol/L (3.5-5.5); Sodium, Blood 133 mmol/L (136-145); Total Protein, Blood 6.2 g/dL (6.4-8.2)
[2018-10-15 13:56] LABS: C-REACTIVE PROTEIN, EXT RANGE >19.000 mg/dL (0.000-0.300)
--- NOTE | 2018-10-15 16:06 | NUR ---
SUMMARY PT L LEG CONTINUES SWOLLEN, REDNESS & SWELLING INCREASED FROM PREVIOUS DAY, DR LU ORDER ANOTHER CT @ CONSULT ORTHO. CHANGED IV ANTIBX TO MERREM & VANCO. PT STATE POOR PAIN CONTROL, DR ADD IV DILAUDID 1-2MG q4 PRN FOR BREAKTHRU PAIN, PT STATE EFFECTIVE. DR GILMAN IN TO SEE HER ENCOURAGE ELEVATION OF LEG. SHE IS ABLE TO STAND & IND GO TO BR HOWEVER INCREASED PAIN WITH WT BRG. WBC WNL, NO FEVERS, VSS. SHE IS PLEASANT/COOPERATIVE/APPRECIATIVE.
--- NOTE | 2018-10-15 17:41 | NUR ---
DR GILMAN, DR ELLSWORTH, DR LU BACK TO SEE PT, STATE INCREASED CONCERNS R/T L LEG CELLULITIS/SWELLING, STATE POSSIBLE NEED TO [facility]. PT MADE NPO @ THIS TIME. DR LU ATTEMPTING TO ARRANGE TRANSFER.
--- NOTE | 2018-10-15 19:25 | NUR ---
"DAY SURGERY RN | PATIENT TRANSFERRED TO PACU FOR PREOP This RN and Winnie Cueva RN transferred patient to PACU for pre-op. Winnie Cueva RN went through chart for pre-surgical checklist. Dr. Zheng spoke with patient and updated plan. Dr. Luu saw the patient as well. Lactated Ringers started per orders TKO. Report to OR nurse Patricia Garcia RN. Patient ate at 1230 and drinking water until 1730, Dr. Luu verbalizes to go ahead with surgery."
--- NOTE | 2018-10-15 19:50 | NUR ---
REPORT RECEIVED REPORT RECEIVED FROM SHUN, MEDICAL FLOOR RN. PT IN OR.
--- NOTE | 2018-10-15 20:18 | NUR ---
10/15/18 2018 Patricia Garcia PT ON SCHEDULED ANTIBIOTICS
--- NOTE | 2018-10-15 21:20 | NUR ---
ARRIVAL TO ICU PT ARRIVED TO ICU FROM OR AT 2100. PT INTUBATED, MINIMALLY RESPONSIVE. SEE ASSESSMENT. BEDSIDE REPORT RECEIVED FROM ANESTHESIOLOGIST AND GALVANIZER. LR INFUSING FROM OR. WOUND VAC TO LEFT UPPER THIGH. BP ELEVATED, PROPOFOL INITIATED. OTHERWISE, VITALS STABLE.
--- NOTE | 2018-10-15 22:20 | NUR ---
DANNA CONSULT DR. CLAY AT BEDSIDE FOR CONSULT. X-RAY REVEIWED. ORDER TO INCREASE PEEP TO 10 DUE TO X-RAY FINDINGS AND FREQUENT DESATURATIONS INTO MID 80'S.
--- NOTE | 2018-10-15 22:30 | NUR ---
TRANSFER UPDATE NOTIFIED BY SENG THAT PT IS TO TRANSFER TO [facility]. VAZQUEZ SILVESTRE RN WORKING ON TRANSFER PLAN AND PAPERWORK.
--- NOTE | 2018-10-15 23:00 | NUR ---
SEDATION PT INCREASINGLY AGITATED, MOVING ARMS AND LEGS RESTLESSLY IN BED, PULLING AT ETT AND OG. PROPOFOL TITRATED GRADUALLY, FENTANYL ADMIN, PT RESTRAINED. PT CONTINUES TO BE AGITATED. ATIVAN ADMIN PER DR. CLAY. AFTER ATIVAN ADMIN RESTLESSNESS IMPROVED.
--- NOTE | 2018-10-15 23:00 | NUR ---
FAMILY UPDATED/PT BELONGINGS PT'S SON, LAMBERTO AND BROTHER DANIEL UPDATED ON TRANSFER PLAN. PT BELONGINGS SENT HOME WITH PT'S BROTHER DANIEL.
[2018-10-15 23:11] LABS: PCO2 Arterial 48.5 mmHg (35-45); PO2 Arterial 76.3 mmHg (80-100); pH Blood Arterial 7.26 (7.35-7.45)
--- NOTE | 2018-10-16 | NUR ---
REPORT TO [facility] RN REPORT CALLED TO ERIC OCHOA RN AT [facility]
[2018-10-16 00:15] LABS: Source, Urine Catheter
--- NOTE | 2018-10-16 00:20 | NUR ---
REACH NURSES AT BEDSIDE REACH NURSES AT BEDSIDE. BEDSIDE REPORT GIVEN. WAITING FOR [facility] FOR TRANSPORTATION.
[2018-10-16 00:21] LABS: Bilirubin, Urine Neg (Neg); Blood, Urine 5+ (Neg); Glucose Qualitative, Urine Neg (Neg); Ketones, Urine Neg (Neg); Leukocyte Esterase, Urine Neg (Neg); Nitrite, Urine Neg (Neg); Protein, Urine 3+ (Neg); Specific Gravity, Urine 1.015 (1.003-1.022); Urobilinogen, Urine NORM (Normal)
--- NOTE | 2018-10-16 01:05 | NUR ---
TRANSFER PT PLACED ON REACH VENTILATOR AND IV PUMPS. LR INFUSING AT 150 ML/HR, PROPOFOL GTT INFUSING PER REACH RN TITRATION. 2 PROPOFOL BOTTLES PLUS CURRENTLY INFUSING BOTTLE SENT WITH NURSES FOR TRANSPORT. VITALS STABLE A THIS TIME. FAMILY UPDATED. [facility] RN UPDATED ON DEPARTURE.
[2018-10-16 01:08] LABS: Appearance, Urine Cloudy (Clear); Color, Urine Yellow (P-Yellow)
[2018-10-16 01:09] LABS: Bacteria Few /hpf; Squamous Epithelial Cells Rare /hpf (Few); White Blood Cells, Urine 0-2 /hpf (0-5)
[2018-10-16 01:10] LABS: Amorphous Light (0-Heavy)
== END 2018-10-16 01:05 | disposition short-term general hospital (02) | DRG 853 ==
LOC: ER 18:36 → PCU 22:24 → MEDS 22:24 → PCU 23:33 → ICUE 10-12 14:43 → PCU 10-13 06:09 → MEDS 10-14 15:19 → ICUW 10-15 19:15
PROVIDERS: Emergency Medicine; Internal Medicine; Internal Medicine Critical Care Medicine; Nurse Practitioner Acute Care; Surgery; ADMIT Internal Medicine
PROC: 04703DZ Dilation of Abdominal Aorta with Intraluminal Device, Percutaneous Approach (ICD-10-PCS; 2018-10-12)
PROC: B41D1ZZ Fluoroscopy of Aorta and Bilateral Lower Extremity Arteries using Low Osmolar Contrast (ICD-10-PCS; 2018-10-12)
PROC: 0BH17EZ Insertion of Endotracheal Airway into Trachea, Via Natural or Artificial Opening (ICD-10-PCS; 2018-10-15)
PROC: 5A1935Z Respiratory Ventilation, Less than 24 Consecutive Hours (ICD-10-PCS; 2018-10-15)
PROC: 0JBM0ZZ Excision of Left Upper Leg Subcutaneous Tissue and Fascia, Open Approach (ICD-10-PCS; principal; 2018-10-15 19:00)
DX: A41.9 Sepsis, unspecified organism (principal); M72.6 Necrotizing fasciitis; Z68.43 Body mass index [BMI] 50.0-59.9, adult; L03.116 Cellulitis of left lower limb; J98.11 Atelectasis; J44.9 Chronic obstructive pulmonary disease, unspecified; E66.01 Morbid (severe) obesity due to excess calories; I10 Essential (primary) hypertension; F41.8 Other specified anxiety disorders; E78.00 Pure hypercholesterolemia, unspecified; F43.10 Post-traumatic stress disorder, unspecified; Z94.5 Skin transplant status; F17.200 Nicotine dependence, unspecified, uncomplicated; G47.33 Obstructive sleep apnea (adult) (pediatric); E11.51 Type 2 diabetes mellitus with diabetic peripheral angiopathy without gangrene; E87.6 Hypokalemia; Z79.84 Long term (current) use of oral hypoglycemic drugs
CPT/HCPCS: 10060; 36245; 36415; 36600; 37236; 51702; 51703; 71045; 73701; 75625; 75716; 75774; 76937; 76998; 80048; 80053; 81001; 82550; 82803; 82947; 83605; 85014; 85018; 85025; 85027; 85610; 85651; 86140; 87040; 87070; 87071; 87075; 87205; 88305; 94002; 94640; 96365; 96375; 99152; 99153; 99283-25; 99285-25; C1725; C1751; C1760; C1769; C1876; C1887; C1894; J0330; J0360; J1100; J1170; J1644; J1885; J2060; J2185; J2250; J2405; J3010; J3370; J7030; J7040; J7050; J7120; Q9967

== ENCOUNTER 2018-10-24 15:56 | Emergency (ER) | payer OTHER ==
[~2018-10-24] VITALS: Ht 170.2 cm; Wt 169.2 kg
== END 2018-10-24 17:14 | disposition home or self-care (01) ==
LOC: ER 15:56
DX: T40.2X1A Poisoning by other opioids, accidental (unintentional), initial encounter (principal); Z88.2 Allergy status to sulfonamides; Z88.1 Allergy status to other antibiotic agents; Z88.0 Allergy status to penicillin; Z91.013 Allergy to seafood; Z79.899 Other long term (current) drug therapy; Z79.84 Long term (current) use of oral hypoglycemic drugs; E11.9 Type 2 diabetes mellitus without complications; J44.9 Chronic obstructive pulmonary disease, unspecified; I10 Essential (primary) hypertension; E78.00 Pure hypercholesterolemia, unspecified; F41.9 Anxiety disorder, unspecified; F32.9 Major depressive disorder, single episode, unspecified
CPT/HCPCS: 99284

== ENCOUNTER 2018-10-25 12:05 | Day surgery (SDC) | payer OTHER | END 2018-10-26 22:43 | disposition home or self-care (01) | LOC: WOUND 12:05 | DX: Z48.1 Encounter for planned postprocedural wound closure (principal); T81.32XA Disruption of internal operation (surgical) wound, not elsewhere classified, initial encounter; R73.09 Other abnormal glucose; Z68.43 Body mass index [BMI] 50.0-59.9, adult; R21 Rash and other nonspecific skin eruption | CPT/HCPCS: G0463 ==

== ENCOUNTER 2018-11-19 09:01 | Inpatient (IN) | payer OTHER ==
[~2018-11-19] VITALS: Ht 170.2 cm; Wt 158.8 kg
[~2018-11-19 09:01] MED LIST changes: +ACET325 PO; +GABA300 PO; +HYDR1TAB94; +LISI20 PO; +ONDA8 PO; +Senna8.6 MG PO
[2018-11-19 10:04] LABS: BASOPHILS ABSOLUTE AUTO 0.02 K/mm3 (0.00-0.23); BASOPHILS PERCENT AUTO 0 % (0-2); EOSINOPHILS ABSOLUTE AUTO 0.16 K/mm3 (0.00-0.68); EOSINOPHILS PERCENT AUTO 3 % (0-6); Hematocrit 44.1 % (33.0-51.0); Hemoglobin 13.3 g/dL (11.5-16.0); IMMATURE GRAN ABSOLUTE AUTO 0.02 K/mm3 (0.00-0.10); IMMATURE GRAN PERCENT AUTO 0 % (0-1); LYMPHOCYTES ABSOLUTE AUTO 1.82 K/mm3 (0.84-5.20); LYMPHOCYTES PERCENT AUTO 29 % (21-46); MONOCYTES ABSOLUTE AUTO 0.39 K/mm3 (0.16-1.47); MONOCYTES PERCENT AUTO 6 % (4-13); Mean Corpuscular HGB 29.5 pg (26.0-34.0); Mean Corpuscular HGB Conc 30.2 g/dL (31.5-36.5); Mean Platelet Volume 10.6 fL (9.1-12.4); NEUTROPHILS ABSOLUTE AUTO 3.87 K/mm3 (1.96-9.15); NEUTROPHILS PERCENT AUTO 62 % (41-73); Platelet Count 244 K/mm3 (150-400); RDW Standard Deviation 50.7 fL (35.1-46.3); Red Blood Cell Count 4.51 M/mm3 (3.80-5.20); White Blood Cell Count 6.28 K/mm3 (4.00-11.30)
[2018-11-19 10:08] LABS: Mean Corpuscular Volume 98 fL (80-100)
[2018-11-19 10:29] LABS: Alanine Aminotransfer (ALT/SGP 26 U/L (12-78); Albumin, Blood 3.5 g/dL (3.4-5.0); Albumin/Globulin Ratio 0.8 (0.8-1.8); Alk Phos 48 U/L (50-136); Anion Gap 8 mmol/L (6-16); Aspartate Aminotrans (AST/SGOT 21 U/L (12-37); Bilirubin, Total 0.2 mg/dL (0.1-1.0); Blood Urea Nitrogen 15 mg/dL (8-24); Bun/Creatinine Ratio 23.8 (12.0-20.0); CO2, Blood 22 mmol/L (21-32); Calcium, Blood 8.6 mg/dL (8.5-10.1); Chloride, Blood 105 mmol/L (98-108); Creatinine, Blood 0.63 mg/dL (0.40-1.00); Globulin, Blood 4.6 g/dL (2.2-4.0); Glomerular Filtration Rate >60 (60-); Glucose, Blood 103 mg/dL (70-99); Potassium, Blood 4.7 mmol/L (3.5-5.5); Sodium, Blood 135 mmol/L (136-145); Total Protein, Blood 8.1 g/dL (6.4-8.2)
[2018-11-19 15:30] LABS: C-REACTIVE PROTEIN, EXT RANGE 0.596 mg/dL (0.000-0.300)
[2018-11-19 15:32] LABS: Thyroid Stimulating Hormone 2.73 uIU/mL (0.360-4.800)
[2018-11-20 06:20] LABS: BASOPHILS ABSOLUTE AUTO 0.01 K/mm3 (0.00-0.23); BASOPHILS PERCENT AUTO 0 % (0-2); EOSINOPHILS ABSOLUTE AUTO 0.14 K/mm3 (0.00-0.68); EOSINOPHILS PERCENT AUTO 3 % (0-6); Hematocrit 38.4 % (33.0-51.0); Hemoglobin 12.1 g/dL (11.5-16.0); IMMATURE GRAN ABSOLUTE AUTO 0.02 K/mm3 (0.00-0.10); IMMATURE GRAN PERCENT AUTO 0 % (0-1); LYMPHOCYTES ABSOLUTE AUTO 1.19 K/mm3 (0.84-5.20); LYMPHOCYTES PERCENT AUTO 24 % (21-46); MONOCYTES ABSOLUTE AUTO 0.38 K/mm3 (0.16-1.47); MONOCYTES PERCENT AUTO 8 % (4-13); Mean Corpuscular HGB 29.4 pg (26.0-34.0); Mean Corpuscular HGB Conc 31.5 g/dL (31.5-36.5); Mean Platelet Volume 10.4 fL (9.1-12.4); NEUTROPHILS PERCENT AUTO 66 % (41-73); Platelet Count 216 K/mm3 (150-400); RDW Coefficient Variation 13.9 % (11.7-14.2); RDW Standard Deviation 47.3 fL (35.1-46.3); Red Blood Cell Count 4.11 M/mm3 (3.80-5.20); White Blood Cell Count 5.04 K/mm3 (4.00-11.30)
[2018-11-20 06:25] LABS: Mean Corpuscular Volume 93 fL (80-100)
[2018-11-20 06:29] LABS: Anion Gap 9 mmol/L (6-16); Blood Urea Nitrogen 13 mg/dL (8-24); Bun/Creatinine Ratio 19.1 (12.0-20.0); CO2, Blood 23 mmol/L (21-32); Calcium, Blood 8.1 mg/dL (8.5-10.1); Chloride, Blood 105 mmol/L (98-108); Creatinine, Blood 0.68 mg/dL (0.40-1.00); Glomerular Filtration Rate >60 (60-); Glucose, Blood 101 mg/dL (70-99); Potassium, Blood 3.9 mmol/L (3.5-5.5); Sodium, Blood 137 mmol/L (136-145)
[2018-11-20 13:44] LABS: Vancomycin, Trough 10.6 ug/mL (5.0-10.0)
--- NOTE | 2018-11-20 19:02 | NUR ---
SHIFT SUMMARY PATIENT A&O X4, INDEPENDENT IN THE ROOM. DENIES ANY SOB OR NAUSEA THIS SHIFT. C/O OF LLE PAIN, RN MEDICATED PER Nov. PATIENT HAS OPEN WOUND TO THE LEFT GROIN AREA AND LEFT LOWER EXTREMETY. WET TO DRY DRESSING WAS PLACED ON LEFT GROIN WOUND PER DR. ANTONIO ORDERS. DRY DRESSING PLACED ON LLE. PICTURES TAKEN AND PLACED IN THE CHART. IV VANCO RUNNING PER Nov. NO ACUTE CHANGES THIS SHIFT. RN WILL CONTINUE TO MONITOR.
--- NOTE | 2018-11-20 19:30 | NUR ---
Assumed care of pt at 1930 after recieving report from off-going nurse.
--- NOTE | 2018-11-20 20:10 | NUR ---
pt unhooked from iv and pt went outside to smoke with sig other. Pt aware of risks. No problems encountered. Iv hooked up when patient returned.
[2018-11-21 05:30] LABS: BASOPHILS ABSOLUTE AUTO 0.01 K/mm3 (0.00-0.23); BASOPHILS PERCENT AUTO 0 % (0-2); EOSINOPHILS ABSOLUTE AUTO 0.14 K/mm3 (0.00-0.68); EOSINOPHILS PERCENT AUTO 4 % (0-6); Hematocrit 36.6 % (33.0-51.0); Hemoglobin 11.4 g/dL (11.5-16.0); IMMATURE GRAN ABSOLUTE AUTO 0.01 K/mm3 (0.00-0.10); IMMATURE GRAN PERCENT AUTO 0 % (0-1); LYMPHOCYTES ABSOLUTE AUTO 1.78 K/mm3 (0.84-5.20); LYMPHOCYTES PERCENT AUTO 46 % (21-46); MONOCYTES ABSOLUTE AUTO 0.32 K/mm3 (0.16-1.47); MONOCYTES PERCENT AUTO 8 % (4-13); Mean Corpuscular HGB 29.4 pg (26.0-34.0); Mean Corpuscular HGB Conc 31.1 g/dL (31.5-36.5); Mean Corpuscular Volume 94 fL (80-100); Mean Platelet Volume 10.5 fL (9.1-12.4); NEUTROPHILS ABSOLUTE AUTO 1.59 K/mm3 (1.96-9.15); NEUTROPHILS PERCENT AUTO 41 % (41-73); Platelet Count 185 K/mm3 (150-400); RDW Coefficient Variation 13.9 % (11.7-14.2); RDW Standard Deviation 47.8 fL (35.1-46.3); Red Blood Cell Count 3.88 M/mm3 (3.80-5.20); White Blood Cell Count 3.85 K/mm3 (4.00-11.30)
--- NOTE | 2018-11-21 05:38 | NUR ---
shift summary: Pt has had a good night. No c/o disomfort during night. Pt out to smoke x 2 during the night. Left leg bandage dry and intact. Significant other at bedside during the night.
--- NOTE | 2018-11-21 13:20 | NUR ---
UP TO ASSESS PT FOR PICC LINE. PTS VEINS ARE VERY SAMALL AND DEEP. ASSESSED PT FOR AN IV START. ATTEMPTED X5 WITH Ryne ACUÑA RN WITH NO SUCCESS.
--- NOTE | 2018-11-21 15:06 | NUR ---
PT HAD KERRIE POWERGLIDE PLACED RIGHT BEFORE PT WAS BROUGHT TO [facility]. THE IV CATH IS NOT INSERTED COMPLETELY D/T CATH HITTING A VALVE. RN THAT PLACED (AP) STATED THAT SHE WAS ABLE TO GET BLOOD BACK AND FLUSH. PT IS SOMEWHAT ANXIOUS AND STATED TO RN "I JUST WANT THIS TO BE DONE" FIANCE IS AT BEDSIDE. RN (GILLIAN) AT FIRST WAS UNABLE TO GET BLOOD RETURN WITH POWERGLIDE. RN ATTEMPTED IV TO RT HAND WAS UNSUCCESSFUL. RN ONCE AGAIN TRIED FOR BLOOD RETURN AND WAS SUCCESSFUL. LAB WAS GIVEN BLOOD FOR VANCO TROUGH. PT IS LAYING FLAT PER REQUEST. VSS. STATES 7/10 PAIN IN LEFT LEG. PT STABLE.
--- NOTE | 2018-11-21 15:16 | NUR ---
COLLISION WORKER RN ([facility]) REPORT GIVEN.
[2018-11-21 15:26] LABS: Vancomycin, Trough 14.5 ug/mL (5.0-10.0)
--- NOTE | 2018-11-21 17:33 | NUR ---
Numerous attempts to see Kaitlyn today. At each try, she was out of room. Per admit trigger, I left information regarding Advanced directive on bedside table. I will continue to attempt conversation as schedule permits.
--- NOTE | 2018-11-21 18:17 | NUR ---
PATIENT A&O X4. C/O OF PAIN TO THE LEFT LOWER EXTREMETY. SBA TO BATHROOM. WOUND VAC TO LEFT GROIN AND LEFT LOWER EXTREMETY. POST OP VS STARTED. RN WILL CONTINUE TO MONITOR.
--- NOTE | 2018-11-21 19:46 | NUR ---
SHIFT SUMMARY PATIENT A&O X4, INDEPENDENT IN THE ROOM. C/O OF PAIN THROUGHOUT THE SHIFT. I&D DONE TODAY. WOUND VAC TO LEFT GROIN AND LLE. RN MEDICATED FOR PAIN THROUGHOUT SHIFT. POST OP VS STARTED. BP 168/104, MEDICATED PER E NOV. NO OTHER ACUTE CHANGES. REPORT GIVEN TO STOCK CHASER RN.
--- NOTE | 2018-11-22 07:31 | NUR ---
a+o, pain finally controlled with medication, wound vac working as designed, up in wc with family to go outside, walking rounds provided to returning day shift
[2018-11-22 08:28] LABS: BASOPHILS PERCENT AUTO 0 % (0-2); EOSINOPHILS ABSOLUTE AUTO 0.01 K/mm3 (0.00-0.68); EOSINOPHILS PERCENT AUTO 0 % (0-6); Hematocrit 37.4 % (33.0-51.0); Hemoglobin 11.8 g/dL (11.5-16.0); IMMATURE GRAN ABSOLUTE AUTO 0.02 K/mm3 (0.00-0.10); IMMATURE GRAN PERCENT AUTO 0 % (0-1); LYMPHOCYTES ABSOLUTE AUTO 0.96 K/mm3 (0.84-5.20); LYMPHOCYTES PERCENT AUTO 17 % (21-46); MONOCYTES ABSOLUTE AUTO 0.21 K/mm3 (0.16-1.47); MONOCYTES PERCENT AUTO 4 % (4-13); Mean Corpuscular HGB 29.3 pg (26.0-34.0); Mean Corpuscular HGB Conc 31.6 g/dL (31.5-36.5); Mean Corpuscular Volume 93 fL (80-100); Mean Platelet Volume 10.9 fL (9.1-12.4); NEUTROPHILS ABSOLUTE AUTO 4.61 K/mm3 (1.96-9.15); NEUTROPHILS PERCENT AUTO 79 % (41-73); Platelet Count 225 K/mm3 (150-400); RDW Coefficient Variation 13.5 % (11.7-14.2); RDW Standard Deviation 46.3 fL (35.1-46.3); Red Blood Cell Count 4.03 M/mm3 (3.80-5.20); White Blood Cell Count 5.81 K/mm3 (4.00-11.30)
[2018-11-22 08:48] LABS: Anion Gap 9 mmol/L (6-16); Blood Urea Nitrogen 17 mg/dL (8-24); Bun/Creatinine Ratio 24.5 (12.0-20.0); CO2, Blood 24 mmol/L (21-32); Calcium, Blood 8.7 mg/dL (8.5-10.1); Chloride, Blood 107 mmol/L (98-108); Creatinine, Blood 0.69 mg/dL (0.40-1.00); Glomerular Filtration Rate >60 (60-); Glucose, Blood 131 mg/dL (70-99); Potassium, Blood 4.1 mmol/L (3.5-5.5); Sodium, Blood 140 mmol/L (136-145)
--- NOTE | 2018-11-22 11:19 | NUR ---
SPOKE WITH DR. GILMAN AND WILL HOLD OFF ON WOUND DRESSING CHANGE UNTIL 11/23.
[2018-11-22] MEDS ORDERED: LISI20 PO (14:36)
[2018-11-22] MEDS ORDERED: BENMENLOZ MM (14:40)
[2018-11-22] MEDS ORDERED: HYDR1TAB94 PO (15:13)
[2018-11-22] MEDS ORDERED: NICO21TP TOP (15:14)
[2018-11-22] MEDS ORDERED: NAPR500 PO (15:14)
[2018-11-22] MEDS ORDERED: SACC250C PO (15:14)
[2018-11-22] MEDS ORDERED: Pedi-Dri 100,0060 GM TOP (15:14)
[2018-11-22] MEDS ORDERED: VANCOMYCIN2 GM/5001 IV (15:18)
--- NOTE | 2018-11-22 15:45 | NUR ---
APPOINTMENT MADE WITH [facility] STARTING 11/23/18 AT 0730 AND 1600, ORDERS FAXED TO THEM. ATTEMPTED TO SCHEDULE AN APPOINTMENT WITH [facility] AND THEY REPORT PT HAS BEEN SEEN BY THEM IN THE PAST AND THE PT HAS REFUSED TO BE SEEN THERE.
--- NOTE | 2018-11-22 19:53 | NUR ---
DISCHARGE SUMMARY PATIENT A&O X4, INDEPENDENT IN THE ROOM. DISCHARGED AT 1925. HOME WOUND VAC IN PLACE, WNL. DISCHARGE INSTRUCTIONS REVIEWED WITH PATIENT. MEDICATIONS FAXED TO PHARMACY. POWER GLIDE IN PLACE FOR OUTPATIENT IV ABX PER ORDERS. ALL BELONGINGS IN HAND. ESCORTED OUT IN WHEELCHAIR, AT HER SIDE.
--- NOTE | 2018-11-23 10:49 | NUR ---
11/23/18 1049 Hyun Helm VERIFICATIONS: EDIT CHART.
== END 2018-11-22 19:25 | disposition home or self-care (01) | DRG 872 ==
LOC: ER 09:01 → ERHOLD 14:08 → MEDS 14:08
PROVIDERS: Emergency Medicine; Orthopaedic Surgery; ADMIT Family Medicine
PROC: 0Y9J3ZZ Drainage of Left Lower Leg, Percutaneous Approach (ICD-10-PCS; 2018-11-21)
PROC: 0HDAXZZ Extraction of Inguinal Skin, External Approach (ICD-10-PCS; principal; 2018-11-21 15:30)
DX: A41.9 Sepsis, unspecified organism (principal); L03.116 Cellulitis of left lower limb; L02.416 Cutaneous abscess of left lower limb; Z68.43 Body mass index [BMI] 50.0-59.9, adult; G47.33 Obstructive sleep apnea (adult) (pediatric); F41.9 Anxiety disorder, unspecified; F32.9 Major depressive disorder, single episode, unspecified; J44.9 Chronic obstructive pulmonary disease, unspecified; E11.69 Type 2 diabetes mellitus with other specified complication; F12.10 Cannabis abuse, uncomplicated; F17.200 Nicotine dependence, unspecified, uncomplicated; I10 Essential (primary) hypertension; E11.51 Type 2 diabetes mellitus with diabetic peripheral angiopathy without gangrene; E66.01 Morbid (severe) obesity due to excess calories; S30.92XA Unspecified superficial injury of abdominal wall, initial encounter; Z86.14 Personal history of Methicillin resistant Staphylococcus aureus infection; Z88.1 Allergy status to other antibiotic agents; Z88.0 Allergy status to penicillin; Z88.2 Allergy status to sulfonamides; Z88.8 Allergy status to other drugs, medicaments and biological substances; Z91.013 Allergy to seafood
CPT/HCPCS: 36415; 73701; 80048; 80053; 80202; 82947; 83036; 83605; 84443; 85025; 86140; 94640; 94760; 96365-59; 96366; 96372-59; 96375-59; 96376-59; 99285-25; J0360; J1100; J1200; J1650; J2250; J2405; J2550; J3010; J3370; J7030; J7050; J7120; Q0163; Q9967

== ENCOUNTER 2018-11-24 00:23 | Day surgery (SDC) | payer OTHER ==
[~2018-11-24 00:23] MED LIST changes: +BENMENLOZ MM; +HYDR1TAB94 PO; +NICO21TP TOP; +Pedi-Dri 100,0060 GM TOP; +SACC250C PO; +VANCOMYCIN2 GM/5001 IV
== END 2018-11-24 12:00 ==
LOC: ATC 00:23
DX: L03.116 Cellulitis of left lower limb (principal); A41.9 Sepsis, unspecified organism; I10 Essential (primary) hypertension; J44.9 Chronic obstructive pulmonary disease, unspecified; F41.9 Anxiety disorder, unspecified; F32.9 Major depressive disorder, single episode, unspecified; F43.10 Post-traumatic stress disorder, unspecified; E78.00 Pure hypercholesterolemia, unspecified; E66.01 Morbid (severe) obesity due to excess calories; M54.9 Dorsalgia, unspecified; G89.29 Other chronic pain; G47.33 Obstructive sleep apnea (adult) (pediatric); F17.210 Nicotine dependence, cigarettes, uncomplicated; E11.9 Type 2 diabetes mellitus without complications; F12.10 Cannabis abuse, uncomplicated; Z79.01 Long term (current) use of anticoagulants; Z86.718 Personal history of other venous thrombosis and embolism; Z88.1 Allergy status to other antibiotic agents; Z88.0 Allergy status to penicillin; Z88.8 Allergy status to other drugs, medicaments and biological substances; Z79.02 Long term (current) use of antithrombotics/antiplatelets; Z79.899 Other long term (current) drug therapy; Z79.84 Long term (current) use of oral hypoglycemic drugs; Z99.89 Dependence on other enabling machines and devices

== ENCOUNTER 2018-11-29 11:34 | Emergency (ER) | payer OTHER ==
[~2018-11-29] VITALS: Ht 170.2 cm; Wt 160.1 kg
[2018-11-29] MEDS ORDERED: Dilaudid 2 mg Ta2 MG PO (15:06)
== END 2018-11-29 15:40 | disposition home or self-care (01) ==
LOC: ER 11:34
DX: G89.18 Other acute postprocedural pain (principal); M79.605 Pain in left leg; Z88.2 Allergy status to sulfonamides; Z88.1 Allergy status to other antibiotic agents; Z88.0 Allergy status to penicillin; Z91.013 Allergy to seafood; Z79.899 Other long term (current) drug therapy; Z79.84 Long term (current) use of oral hypoglycemic drugs; J44.9 Chronic obstructive pulmonary disease, unspecified; F17.200 Nicotine dependence, unspecified, uncomplicated
CPT/HCPCS: 36415; 73590; 99283-25; J1170; J2405

== ENCOUNTER 2019-02-19 14:04 | Emergency (ER) | payer OTHER ==
[~2019-02-19] VITALS: Ht 170.2 cm; Wt 161.5 kg
[~2019-02-19 14:04] MED LIST changes: +Dilaudid 2 mg Ta2 MG PO
[2019-02-19] MEDS ORDERED: Voltaren100 GM TOP (16:07)
== END 2019-02-19 16:13 | disposition home or self-care (01) ==
LOC: ER 14:04
DX: M17.12 Unilateral primary osteoarthritis, left knee (principal); Z88.2 Allergy status to sulfonamides; Z88.1 Allergy status to other antibiotic agents; Z88.0 Allergy status to penicillin; Z88.8 Allergy status to other drugs, medicaments and biological substances; Z91.013 Allergy to seafood; Z79.899 Other long term (current) drug therapy; Z79.84 Long term (current) use of oral hypoglycemic drugs; J44.9 Chronic obstructive pulmonary disease, unspecified; F17.200 Nicotine dependence, unspecified, uncomplicated
CPT/HCPCS: 73564; 99283-25

== ENCOUNTER 2019-05-05 23:06 | Emergency (ER) | payer OTHER ==
[~2019-05-05] VITALS: Ht 170.2 cm; Wt 160.1 kg
[~2019-05-05 23:06] MED LIST changes: +Voltaren100 GM TOP
== END 2019-05-06 00:54 | disposition left against medical advice (07) ==
LOC: ER 23:06
DX: Z53.21 Procedure and treatment not carried out due to patient leaving prior to being seen by health care provider (principal)

== ENCOUNTER 2019-05-08 01:45 | Emergency (ER) | payer OTHER ==
[~2019-05-08] VITALS: Ht 170.2 cm; Wt 160.1 kg
[2019-05-08] MEDS ORDERED: Cleocin HCl150 MG PO (03:32)
== END 2019-05-08 03:50 | disposition home or self-care (01) ==
LOC: ER 01:45
DX: J02.0 Streptococcal pharyngitis (principal); J45.909 Unspecified asthma, uncomplicated; J44.9 Chronic obstructive pulmonary disease, unspecified; F17.200 Nicotine dependence, unspecified, uncomplicated; Z87.01 Personal history of pneumonia (recurrent); Z88.2 Allergy status to sulfonamides; Z88.1 Allergy status to other antibiotic agents; Z88.0 Allergy status to penicillin; Z91.013 Allergy to seafood; Z88.8 Allergy status to other drugs, medicaments and biological substances; Z79.899 Other long term (current) drug therapy; Z79.84 Long term (current) use of oral hypoglycemic drugs; Z79.02 Long term (current) use of antithrombotics/antiplatelets; Z79.51 Long term (current) use of inhaled steroids
CPT/HCPCS: 87430; 96361; 96365; 96375; 99283-25; J1885; J2930; J7030

== ENCOUNTER → 2019-05-25 | Outpatient (CLI) | payer OTHER ==
[~2019-05-25] MED LIST changes: +Cleocin HCl150 MG PO
[2019-05-25 15:44] LABS: U Amphetamine Screen Not Detected; U Barbituate Screen Not Detected; U Benzodiazapine Screen Not Detected; U Buprenorphine Screen Not Detected; U Cannabinoids Screen DETECTED; U Cocaine Screen Not Detected; U Methadone Screen Not Detected; U Methamphetamine Screen Not Detected; U Opiates Screen Not Detected; U Oxycodone Screen Not Detected; U Phencyclidine Screen Not Detected; U Propoxyphene Screen Not Detected
[2019-05-31 07:07] LABS: TRICYCLIC ANTIDEP Negative ng/mL (Cutoff=100)
== END | disposition home or self-care (01) ==
LOC: LAB 13:53 → LAB SHORT 13:53
PROVIDERS: Psychiatry & Neurology Psychiatry
DX: Z51.81 Encounter for therapeutic drug level monitoring (principal); Z79.899 Other long term (current) drug therapy
CPT/HCPCS: 80369; G0480; G0481

== ENCOUNTER 2019-09-12 09:38 | Emergency (ER) | payer OTHER ==
[~2019-09-12] VITALS: Ht 170.2 cm; Wt 157.8 kg
[2019-09-12 10:53] LABS: Source, Urine Clean Catch
[2019-09-12 10:55] LABS: BASOPHILS ABSOLUTE AUTO 0.03 K/mm3 (0.00-0.23); BASOPHILS PERCENT AUTO 1 % (0-2); EOSINOPHILS ABSOLUTE AUTO 0.13 K/mm3 (0.00-0.68); EOSINOPHILS PERCENT AUTO 2 % (0-6); Hematocrit 47.8 % (33.0-51.0); Hemoglobin 15.1 g/dL (11.5-16.0); IMMATURE GRAN ABSOLUTE AUTO 0.02 K/mm3 (0.00-0.10); IMMATURE GRAN PERCENT AUTO 0 % (0-1); LYMPHOCYTES ABSOLUTE AUTO 2.43 K/mm3 (0.84-5.20); LYMPHOCYTES PERCENT AUTO 41 % (21-46); MONOCYTES ABSOLUTE AUTO 0.32 K/mm3 (0.16-1.47); MONOCYTES PERCENT AUTO 5 % (4-13); Mean Corpuscular HGB 29.9 pg (26.0-34.0); Mean Corpuscular HGB Conc 31.6 g/dL (31.5-36.5); Mean Corpuscular Volume 95 fL (80-100); Mean Platelet Volume 11.3 fL (9.1-12.4); NEUTROPHILS ABSOLUTE AUTO 3.04 K/mm3 (1.96-9.15); NEUTROPHILS PERCENT AUTO 51 % (41-73); Platelet Count 169 K/mm3 (150-400); RDW Coefficient Variation 13.8 % (11.7-14.2); RDW Standard Deviation 47.8 fL (35.1-46.3); Red Blood Cell Count 5.05 M/mm3 (3.80-5.20); White Blood Cell Count 5.97 K/mm3 (4.00-11.30)
[2019-09-12 11:07] LABS: Appearance, Urine Clear (Clear); Bacteria Not Seen /hpf; Bilirubin, Urine Neg (Neg); Blood, Urine 3+ (Neg); Color, Urine Yellow (P-Yellow); Glucose Qualitative, Urine Neg (Neg); Ketones, Urine Neg (Neg); Leukocyte Esterase, Urine Neg (Neg); Nitrite, Urine Neg (Neg); Protein, Urine 2+ (Neg); Red Blood Cells, Urine 0-2 /hpf (0-2); Squamous Epithelial Cells Rare /hpf (Few); Urobilinogen, Urine NORM (Normal); White Blood Cells, Urine Not Seen /hpf (0-5)
[2019-09-12 11:44] LABS: Alanine Aminotransfer (ALT/SGP 34 U/L (12-78); Albumin, Blood 3.3 g/dL (3.4-5.0); Alk Phos 56 U/L (50-136); Anion Gap 6 mmol/L (6-16); Aspartate Aminotrans (AST/SGOT 24 U/L (12-37); Bilirubin, Total 0.3 mg/dL (0.1-1.0); Blood Urea Nitrogen 10 mg/dL (8-24); Bun/Creatinine Ratio 13.9 (12.0-20.0); CO2, Blood 24 mmol/L (21-32); Calcium, Blood 8.6 mg/dL (8.5-10.1); Chloride, Blood 110 mmol/L (98-108); Creatinine, Blood 0.72 mg/dL (0.40-1.00); Globulin, Blood 3.3 g/dL (2.2-4.0); Glomerular Filtration Rate >60 (60-); Glucose, Blood 75 mg/dL (70-99); Potassium, Blood 4.4 mmol/L (3.5-5.5); Sodium, Blood 140 mmol/L (136-145); Total Protein, Blood 6.6 g/dL (6.4-8.2)
[2019-09-12] MEDS ORDERED: ALLO300 PO (13:51)
[2019-09-12] MEDS ORDERED: LAMO100 PO (13:53)
[2019-09-12] MEDS ORDERED: TOPI25 PO (13:54)
[2019-09-12] MEDS ORDERED: ATOR80 PO (13:56)
[2019-09-12] MEDS ORDERED: BUDE6HFA INH (13:57)
[2019-09-12] MEDS ORDERED: LIDOCAINE PLUS120 GM TOP (16:58)
[2019-09-12] MEDS ORDERED: Norco 5-325 Ta1 EACH PO (16:58)
[2019-09-12] MEDS ORDERED: Colace100 MG PO (16:58)
== END 2019-09-12 17:57 | disposition home or self-care (01) ==
LOC: ER 09:38
PROVIDERS: Emergency Medicine
DX: K62.89 Other specified diseases of anus and rectum (principal); J44.9 Chronic obstructive pulmonary disease, unspecified; F17.200 Nicotine dependence, unspecified, uncomplicated; Z88.2 Allergy status to sulfonamides; Z88.1 Allergy status to other antibiotic agents; Z88.0 Allergy status to penicillin; Z88.8 Allergy status to other drugs, medicaments and biological substances; Z91.013 Allergy to seafood; Z79.899 Other long term (current) drug therapy; Z79.51 Long term (current) use of inhaled steroids; Z79.01 Long term (current) use of anticoagulants
CPT/HCPCS: 36415; 74177; 80053; 81001; 83690; 85025; 96374-59; 96375; 99284-25; J2270; J2405; J3010; Q9967

== ENCOUNTER → 2019-09-19 | Outpatient (CLI) | payer OTHER ==
[~2019-09-19] MED LIST changes: +ALLO300 PO; +Colace100 MG PO; +LIDOCAINE PLUS120 GM TOP; +Norco 5-325 Ta1 EACH PO; +TOPI25 PO
[2019-09-20 12:49] LABS: Adenovirus F 40/41 Not Detected (NOT DETECT); Astrovirus Not Detected (NOT DETECT); Campylobacter Sp Not Detected (NOT DETECT); Cryptosporidium Not Detected (NOT DETECT); Cyclospora Cayetanensis Not Detected (NOT DETECT); E. Coli O157 Not Detected (NOT DETECT); Entamoeba Histolytica Not Detected (NOT DETECT); Enteroaggregative E. coli-EAEC Not Detected (NOT DETECT); Enteropathogenic E. coli-EPEC Not Detected (NOT DETECT); Enterotoxigenic E. coli-ETEC Not Detected (NOT DETECT); Giardia Lamblia Not Detected (NOT DETECT); Norovirus GI/GII Not Detected (NOT DETECT); Plesiomonas Shigelloides Not Detected (NOT DETECT); Rotavirus A Not Detected (NOT DETECT); Salmonella Sp Not Detected (NOT DETECT); Sapovirus Not Detected (NOT DETECT); Shiga Toxin-prod E. coli-STEC Not Detected (NOT DETECT); Shigella/Enteroin E. coli-EIEC Not Detected (NOT DETECT); Vibrio Cholerae Not Detected (NOT DETECT); Vibrio Sp Not Detected (NOT DETECT); Yersinia Enterocolitica Not Detected (NOT DETECT)
== END | disposition home or self-care (01) ==
LOC: OLS 10:32 → LAB SHORT 10:32 → LAB FUT 09-20 10:05
PROVIDERS: Internal Medicine
DX: K62.89 Other specified diseases of anus and rectum (principal); R19.7 Diarrhea, unspecified
CPT/HCPCS: 0097U

== ENCOUNTER → 2019-09-25 | Outpatient (CLI) | payer OTHER ==
[2019-09-27 14:07] LABS: HPV 16 Negative (Negative); HPV 18 Negative (Negative); HPV OTHER HR TYPES Negative (Negative)
== END | disposition home or self-care (01) ==
LOC: LAB SHORT 09:00 → LAB 09:00
PROVIDERS: Obstetrics & Gynecology
DX: Z01.419 Encounter for gynecological examination (general) (routine) without abnormal findings (principal); N64.59 Other signs and symptoms in breast
CPT/HCPCS: 87070; 87205; 87624; G0123

== ENCOUNTER 2020-06-03 10:02 | Day surgery (SDC) | payer OTHER ==
[~2020-06-03] VITALS: Ht 170.2 cm; Wt 154.0 kg
[2020-06-03] MEDS ORDERED: Prozac40 MG (10:48)
[2020-06-03] MEDS ORDERED: CILO100 (10:49)
[2020-06-03] MEDS ORDERED: TRAZ100 (10:49)
[2020-06-03] MEDS ORDERED: VRAYLAR1.5 MG (10:50)
[2020-06-03] MEDS ORDERED: CYCL10 (10:50)
[2020-06-03] MEDS ORDERED: FLUT1DIS5 (10:51)
[2020-06-03] MEDS ORDERED: SUMA25 (10:51)
--- NOTE | 2020-06-03 15:55 | NUR ---
PT TO RECOVERY ROOM POST PROCEDURE. PT DROWSY, BUT CONVERSING APPROPRIATELY, DENIES PAIN POST PROCEDURE. MONITOR SB 50'S, B/P 135/66, AFEBRILE, SPO2 91% RA. R GROIN ACCESS SITE NO SWELLING/HEMATOMA, TEGADERM DRSG INTACT; ANGIO SEAL DEPLOYED. L GROIN ACCESS SITE NO SWELLING/HEMATOMA, TEGADERM DRSG INTACT; ANGIO SEAL DEPLOYED. BLE: PT HAS PALPABLE PULSES 2+ X 2. PT TAKING PO FLUIDS WITHOUT PROBLEM. PT'S FAMILY AT BEDSIDE.
--- NOTE | 2020-06-03 17:25 | NUR ---
PT HOB ELEVATED, SITES REMAIN UNCHANGED.
--- NOTE | 2020-06-03 17:45 | NUR ---
PT AMB TO THE BATHROOM, VOIDED QS, SITES UNCHANGED WITH ACTIVITY.
--- NOTE | 2020-06-03 18:10 | NUR ---
PT DRESSED SELF WITHOUT ISSUE, SITES UNCHANGED; IV REMOVED-CANNULA INTACT.
--- NOTE | 2020-06-03 18:24 | NUR ---
PT AND BROTHER RECEIVED DISCHARGE INSTRUCTIONS, MED LIST AND AFTER CARE INSTRUCTIONS; VERBALIZED GOOD UNDERSTANDING. PT LEFT FACILITY VIA W/C, CONDITION STABLE.
== END 2020-06-03 18:24 | disposition home or self-care (01) ==
LOC: MHTC 10:02
DX: I70.213 Atherosclerosis of native arteries of extremities with intermittent claudication, bilateral legs (principal); I35.0 Nonrheumatic aortic (valve) stenosis; I70.1 Atherosclerosis of renal artery; Z88.0 Allergy status to penicillin; Z88.1 Allergy status to other antibiotic agents; Z88.2 Allergy status to sulfonamides; Z91.013 Allergy to seafood; Z91.018 Allergy to other foods
CPT/HCPCS: 76937; 99152; 99153; C1725; C1757; C1760; C1769; C1887; C1894; J1644; J2060; J2250; J3010; J7030; Q9967

== ENCOUNTER 2020-11-14 10:41 | Emergency (ER) | payer OTHER ==
[~2020-11-14] VITALS: Ht 162.6 cm; Wt 145.2 kg
[~2020-11-14 10:41] MED LIST changes: +CILO100; +CYCL10; +FLUT1DIS5 INH; +Prozac40 MG PO; +SUMA25; +TRAZ100 PO; +VRAYLAR1.5 MG PO
[2020-11-14 11:46] LABS: BASOPHILS ABSOLUTE AUTO 0.02 K/mm3 (0.00-0.23); BASOPHILS PERCENT AUTO 0 % (0-2); EOSINOPHILS ABSOLUTE AUTO 0.11 K/mm3 (0.00-0.68); EOSINOPHILS PERCENT AUTO 2 % (0-6); Hematocrit 46.1 % (33.0-51.0); Hemoglobin 14.6 g/dL (11.5-16.0); IMMATURE GRAN ABSOLUTE AUTO 0.02 K/mm3 (0.00-0.10); IMMATURE GRAN PERCENT AUTO 0 % (0-1); LYMPHOCYTES ABSOLUTE AUTO 2.03 K/mm3 (0.84-5.20); LYMPHOCYTES PERCENT AUTO 34 % (21-46); MONOCYTES ABSOLUTE AUTO 0.32 K/mm3 (0.16-1.47); MONOCYTES PERCENT AUTO 5 % (4-13); Mean Corpuscular HGB 28.8 pg (26.0-34.0); Mean Corpuscular HGB Conc 31.7 g/dL (31.5-36.5); Mean Corpuscular Volume 91 fL (80-100); Mean Platelet Volume 10.8 fL (9.1-12.4); NEUTROPHILS ABSOLUTE AUTO 3.55 K/mm3 (1.96-9.15); NEUTROPHILS PERCENT AUTO 59 % (41-73); Platelet Count 197 K/mm3 (150-400); RDW Coefficient Variation 14.6 % (11.7-14.2); RDW Standard Deviation 48.5 fL (35.1-46.3); Red Blood Cell Count 5.07 M/mm3 (3.80-5.20); White Blood Cell Count 6.05 K/mm3 (4.00-11.30)
[2020-11-14 12:13] LABS: Alanine Aminotransfer (ALT/SGP 25 U/L (12-78); Albumin, Blood 3.2 g/dL (3.4-5.0); Albumin/Globulin Ratio 0.7 (0.8-1.8); Alk Phos 76 U/L (50-136); Anion Gap 6 mmol/L (6-16); Aspartate Aminotrans (AST/SGOT 19 U/L (12-37); Bilirubin, Total 0.4 mg/dL (0.1-1.0); Blood Urea Nitrogen 11 mg/dL (8-24); Bun/Creatinine Ratio 12.4 (12.0-20.0); CO2, Blood 25 mmol/L (21-32); Calcium, Blood 9.1 mg/dL (8.5-10.1); Chloride, Blood 109 mmol/L (98-108); Creatinine, Blood 0.88 mg/dL (0.40-1.00); Globulin, Blood 4.6 g/dL (2.2-4.0); Glomerular Filtration Rate >60 (60-); Glucose, Blood 97 mg/dL (70-99); Sodium, Blood 140 mmol/L (136-145); Total Protein, Blood 7.8 g/dL (6.4-8.2)
[2020-11-14 12:26] LABS: Influenza A, PCR NEGATIVE (NEGATIVE); Influenza B, PCR NEGATIVE (NEGATIVE); Resp Syncytial Virus, PCR NEGATIVE (NEGATIVE); SARS-Cov-2 (COVID-19) PCR, MMC NEGATIVE (NEGATIVE)
[2020-11-14] MEDS ORDERED: PRED20 PO (15:10)
[2020-11-14] MEDS ORDERED: LEVFLO500 PO (15:10)
== END 2020-11-14 15:19 | disposition home or self-care (01) ==
LOC: ER 10:41
PROVIDERS: Emergency Medicine
DX: J96.01 Acute respiratory failure with hypoxia (principal); J98.01 Acute bronchospasm; Z20.822 Contact with and (suspected) exposure to COVID-19; Z88.2 Allergy status to sulfonamides; Z88.0 Allergy status to penicillin; Z91.018 Allergy to other foods; Z88.1 Allergy status to other antibiotic agents; Z91.013 Allergy to seafood; Z79.02 Long term (current) use of antithrombotics/antiplatelets; Z79.899 Other long term (current) drug therapy
CPT/HCPCS: 0241U; 36415; 71045; 71260; 80053; 83880; 85025; 94640; 96374-59; 99285-25; J2930; Q9967

== ENCOUNTER → 2021-04-23 | Outpatient (CLI) | payer OTHER ==
[~2021-04-23] MED LIST changes: +LEVFLO500 PO; +PRED20 PO
[2021-04-23 16:02] LABS: Albumin, Blood 3.7 g/dL (3.4-5.0); Anion Gap 7 mmol/L (6-16); Blood Urea Nitrogen 14 mg/dL (8-24); Bun/Creatinine Ratio 13.2 (12.0-20.0); CHOL/HDL RATIO 2.9; CO2, Blood 23 mmol/L (21-32); Calcium, Blood 8.6 mg/dL (8.5-10.1); Chloride, Blood 108 mmol/L (98-108); Cholesterol 126 mg/dL (50-200); Creatinine, Blood 1.06 mg/dL (0.40-1.00); Ferritin, Serum 152 ng/mL (8-252); Glomerular Filtration Rate 58 (60-); Glucose, Blood 116 mg/dL (70-99); HDL Cholesterol 43 mg/dL (>39); Iron Serum 80 ug/dL (50-170); LDL/HDL RATIO 1.1; Low Density Lipoprotein Chol 46 mg/dL (0-110); Percent Saturation 24.5 % (15.0-50.0); Phosphorus, Blood 3.2 mg/dL (2.5-4.9); Sodium, Blood 138 mmol/L (136-145); Total Iron Binding Capacity 327 ug/dL (250-450); Triglycerides 187 mg/dL (30-140); Very Low Density Lipoprot Chol 37 mg/dL (6-28)
== END | disposition home or self-care (01) ==
LOC: LAB 09:10 → LAB SHORT 09:10
PROVIDERS: Internal Medicine
DX: E78.5 Hyperlipidemia, unspecified (principal); G25.81 Restless legs syndrome; R60.0 Localized edema
CPT/HCPCS: 80061; 80069; 82728; 83540; 83550; 83735

== ENCOUNTER → 2021-07-09 | Outpatient (CLI) | payer OTHER ==
[2021-07-09 13:31] LABS: Hematocrit 40.3 % (33.0-51.0); Hemoglobin 13.6 g/dL (11.5-16.0); Mean Corpuscular HGB 31.3 pg (26.0-34.0); Mean Corpuscular HGB Conc 33.7 g/dL (31.5-36.5); Mean Corpuscular Volume 93 fL (80-100); Mean Platelet Volume 11.4 fL (9.1-12.4); Platelet Count 183 K/mm3 (150-400); RDW Coefficient Variation 13.2 % (11.7-14.2); Red Blood Cell Count 4.35 M/mm3 (3.80-5.20); White Blood Cell Count 8.41 K/mm3 (4.00-11.30)
[2021-07-09 14:12] LABS: Albumin, Blood 3.7 g/dL (3.4-5.0); Anion Gap 9 mmol/L (6-16); Blood Urea Nitrogen 16 mg/dL (8-24); Bun/Creatinine Ratio 8.4 (12.0-20.0); CO2, Blood 22 mmol/L (21-32); Calcium, Blood 9.5 mg/dL (8.5-10.1); Chloride, Blood 106 mmol/L (98-108); Glomerular Filtration Rate 29 (60-); Glucose, Blood 96 mg/dL (70-99); Phosphorus, Blood 4.1 mg/dL (2.5-4.9); Sodium, Blood 137 mmol/L (136-145)
== END | disposition home or self-care (01) ==
LOC: LAB SHORT 09:50 → LAB 09:50
PROVIDERS: Internal Medicine
DX: Z13.6 Encounter for screening for cardiovascular disorders (principal); Z13.29 Encounter for screening for other suspected endocrine disorder; R60.0 Localized edema
CPT/HCPCS: 80069; 84443; 85027

== ENCOUNTER 2021-09-18 17:44 | Emergency (ER) | payer OTHER | END 2021-09-18 18:40 | disposition left against medical advice (07) | LOC: ER 17:44 | DX: Z53.21 Procedure and treatment not carried out due to patient leaving prior to being seen by health care provider (principal) ==

== ENCOUNTER 2022-04-11 12:51 | Emergency (ER) | payer OTHER ==
[~2022-04-11] VITALS: Ht 170.2 cm; Wt 164.2 kg
[~2022-04-11 12:51] MED LIST changes: +ONDA4ODT MM
[2022-04-11 14:36] LABS: BASOPHILS ABSOLUTE AUTO 0.01 K/mm3 (0.00-0.23); BASOPHILS PERCENT AUTO 0 % (0-2); EOSINOPHILS ABSOLUTE AUTO 0.01 K/mm3 (0.00-0.68); EOSINOPHILS PERCENT AUTO 0 % (0-6); Hematocrit 37.7 % (33.0-51.0); Hemoglobin 12.5 g/dL (11.5-16.0); IMMATURE GRAN ABSOLUTE AUTO 0.05 K/mm3 (0.00-0.10); IMMATURE GRAN PERCENT AUTO 1 % (0-1); LYMPHOCYTES ABSOLUTE AUTO 1.58 K/mm3 (0.84-5.20); LYMPHOCYTES PERCENT AUTO 15 % (21-46); MONOCYTES ABSOLUTE AUTO 0.76 K/mm3 (0.16-1.47); MONOCYTES PERCENT AUTO 7 % (4-13); Mean Corpuscular HGB 29.6 pg (26.0-34.0); Mean Corpuscular HGB Conc 33.2 g/dL (31.5-36.5); Mean Corpuscular Volume 89 fL (80-100); Mean Platelet Volume 10.3 fL (9.1-12.4); NEUTROPHILS ABSOLUTE AUTO 7.96 K/mm3 (1.96-9.15); NEUTROPHILS PERCENT AUTO 77 % (41-73); Platelet Count 173 K/mm3 (150-400); RDW Coefficient Variation 13.9 % (11.7-14.2); RDW Standard Deviation 45.1 fL (35.1-46.3); Red Blood Cell Count 4.22 M/mm3 (3.80-5.20); White Blood Cell Count 10.37 K/mm3 (4.00-11.30)
[2022-04-11 14:56] LABS: Albumin/Globulin Ratio 0.7 (0.8-1.8); Bilirubin, Total 0.6 mg/dL (0.1-1.0); Bun/Creatinine Ratio 21.5 (12.0-20.0); Calcium, Blood 9.3 mg/dL (8.5-10.1); Creatinine, Blood 0.98 mg/dL (0.40-1.00); Globulin, Blood 4.5 g/dL (2.2-4.0); Potassium, Blood 4.2 mmol/L (3.5-5.5); Total Protein, Blood 7.5 g/dL (6.4-8.2)
[2022-04-11] MEDS ORDERED: Cleocin HCl150 MG PO (16:55)
[2022-04-11] MEDS ORDERED: DOXY100 PO (17:42)
== END 2022-04-11 18:30 | disposition home or self-care (01) ==
LOC: ER 12:51
PROVIDERS: Physician Assistant
DX: L03.115 Cellulitis of right lower limb (principal); J44.9 Chronic obstructive pulmonary disease, unspecified; F41.9 Anxiety disorder, unspecified; F31.9 Bipolar disorder, unspecified; Z88.1 Allergy status to other antibiotic agents; Z88.0 Allergy status to penicillin; Z91.013 Allergy to seafood; Z88.2 Allergy status to sulfonamides; Z88.8 Allergy status to other drugs, medicaments and biological substances; Z91.018 Allergy to other foods; Z79.899 Other long term (current) drug therapy
CPT/HCPCS: 36415; 72193; 80053; 85025; A9270; J1885; Q9967

== ENCOUNTER 2022-04-12 22:58 | Inpatient (IN) | payer OTHER ==
[~2022-04-12] VITALS: Ht 170.2 cm; Wt 175.5 kg
[~2022-04-12 22:58] MED LIST changes: +DOXY100 PO
[2022-04-12 23:20] LABS: BASOPHILS ABSOLUTE AUTO 0.01 K/mm3 (0.00-0.23); BASOPHILS PERCENT AUTO 0 % (0-2); EOSINOPHILS ABSOLUTE AUTO 0.02 K/mm3 (0.00-0.68); EOSINOPHILS PERCENT AUTO 0 % (0-6); Hematocrit 30.4 % (33.0-51.0); Hemoglobin 9.8 g/dL (11.5-16.0); IMMATURE GRAN ABSOLUTE AUTO 0.11 K/mm3 (0.00-0.10); IMMATURE GRAN PERCENT AUTO 1 % (0-1); LYMPHOCYTES ABSOLUTE AUTO 1.42 K/mm3 (0.84-5.20); LYMPHOCYTES PERCENT AUTO 15 % (21-46); MONOCYTES ABSOLUTE AUTO 1.15 K/mm3 (0.16-1.47); MONOCYTES PERCENT AUTO 12 % (4-13); Mean Corpuscular HGB 29.3 pg (26.0-34.0); Mean Corpuscular HGB Conc 32.2 g/dL (31.5-36.5); Mean Corpuscular Volume 91 fL (80-100); Mean Platelet Volume 10.1 fL (9.1-12.4); NEUTROPHILS ABSOLUTE AUTO 6.91 K/mm3 (1.96-9.15); NEUTROPHILS PERCENT AUTO 72 % (41-73); Platelet Count 159 K/mm3 (150-400); RDW Standard Deviation 47.2 fL (35.1-46.3); Red Blood Cell Count 3.34 M/mm3 (3.80-5.20); White Blood Cell Count 9.62 K/mm3 (4.00-11.30)
[2022-04-12 23:39] LABS: Albumin, Blood 2.3 g/dL (3.4-5.0); Albumin/Globulin Ratio 0.6 (0.8-1.8); Bilirubin, Total 0.7 mg/dL (0.1-1.0); Bun/Creatinine Ratio 15.8 (12.0-20.0); Calcium, Blood 7.7 mg/dL (8.5-10.1); Creatinine, Blood 1.84 mg/dL (0.40-1.00); Globulin, Blood 4.1 g/dL (2.2-4.0); Potassium, Blood 3.6 mmol/L (3.5-5.5); Total Protein, Blood 6.4 g/dL (6.4-8.2)
[2022-04-13 01:07] LABS: Source, Urine Foley catheter
[2022-04-13 01:11] LABS: Bilirubin, Urine Neg (Neg); Blood, Urine 3+ (Neg); Color, Urine Yellow (P-Yellow); Glucose Qualitative, Urine Neg (Neg); Ketones, Urine Neg (Neg); Leukocyte Esterase, Urine Neg (Neg); Nitrite, Urine Neg (Neg); Protein, Urine 1+ (Neg); Urobilinogen, Urine NORM (Normal)
[2022-04-13 01:20] LABS: Appearance, Urine Hazy (Clear); Bacteria Many /hpf; Hyaline Casts 0-2 /lpf (0-2); Red Blood Cells, Urine 0-2 /hpf (0-2); Squamous Epithelial Cells Rare /hpf (Few); White Blood Cells, Urine 0-2 /hpf (0-5)
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
[2022-04-13 08:35] LABS: Bun/Creatinine Ratio 17.8 (12.0-20.0); Calcium, Blood 7.6 mg/dL (8.5-10.1); Creatinine, Blood 1.57 mg/dL (0.40-1.00); Potassium, Blood 3.8 mmol/L (3.5-5.5)
--- NOTE | 2022-04-13 15:45 | NUR ---
04/13/22 1545 Ewa Mays PT IS ON SCHEDULED ABX
--- NOTE | 2022-04-13 18:18 | NUR ---
Shift Summary Pt alert, oriented, calm and cooperative with care. Pt resting in bed. Hester in place and draining. Right inner thigh cellulitis, replaced dressing this am, this afternoon pt to i&d, wound packed with gauze, covered in tape. Tele sinus, bp hypotensive this am, trending up with fluids and after procedure. Spo2 >90% this am on ra, back from procedure spo2 >90% on 3l o2 via nc. Abd soft, nontender. Pt reporting pain to right thigh t/o shift, medicated per emar, discussed pain medications with Dr Biswas this am, entered per orders. Other Vss. No other acute changes noted. Pt recieving iv antibiotics. Will continues to monitor unitl report given to oncoming rn.
--- NOTE | 2022-04-13 23:12 | NUR ---
CARE ASSUMPTION: PATIENT IN BED WITH L SCD IN PLACE AND FAMILY AT BEDSIDE. LR AND ABX INFUSING TO POWERGLIDE. BP WNL, O2 SATS >90% 3L NC. PATIENT DUE FOR PAIN MEDICATION AND MAKES NEEDS KNOWN. PATIENT ALSO REQUESTS HAND IV BE REMOVED CAUSING PAIN. MEDICATED PER EMAR AND D/C'D HAND IV. BED LOW WITH CALL LIGHT IN REACH.
[2022-04-14 06:08] LABS: BASOPHILS ABSOLUTE AUTO 0.04 K/mm3 (0.00-0.23); BASOPHILS PERCENT AUTO 0 % (0-2); EOSINOPHILS PERCENT AUTO 0 % (0-6); Hematocrit 31.4 % (33.0-51.0); Hemoglobin 10.6 g/dL (11.5-16.0); IMMATURE GRAN PERCENT AUTO 2 % (0-1); LYMPHOCYTES ABSOLUTE AUTO 0.87 K/mm3 (0.84-5.20); LYMPHOCYTES PERCENT AUTO 8 % (21-46); MONOCYTES ABSOLUTE AUTO 0.64 K/mm3 (0.16-1.47); MONOCYTES PERCENT AUTO 6 % (4-13); Mean Corpuscular HGB 29.8 pg (26.0-34.0); Mean Corpuscular HGB Conc 33.8 g/dL (31.5-36.5); Mean Corpuscular Volume 88 fL (80-100); Mean Platelet Volume 10.4 fL (9.1-12.4); NEUTROPHILS ABSOLUTE AUTO 9.91 K/mm3 (1.96-9.15); NEUTROPHILS PERCENT AUTO 85 % (41-73); Platelet Count 193 K/mm3 (150-400); RDW Coefficient Variation 13.7 % (11.7-14.2); RDW Standard Deviation 44.9 fL (35.1-46.3); Red Blood Cell Count 3.56 M/mm3 (3.80-5.20); White Blood Cell Count 11.66 K/mm3 (4.00-11.30)
--- NOTE | 2022-04-14 06:17 | NUR ---
SHIFT SUMMARY: PATIENT VS WNL ON /3L NC, A&O, PLEASANT AND COOPERATIVE WITH CARE. PATIENT STOOD AT BEDSIDE AFTER MIDNIGHT AND HAD SOME DISCOMFORT WITH BARRETT FOLLOWING THAT. STATLOCK APPLIED TO LEG. PATIENT AMBULATED TO TOILET WITH AIDE THIS AM. OUTER SURGICAL DRESSINGS WERE SATURATED AND BECAME LOOSE IN BED. REDRESSED WITH SUPERABSORBENT DRESSINGS TO HOLD GAUZE IN PLACE. MEDICATED PER EMAR. NS RUNNING KVO. POWERGLIDE DIDN'T DRAW THIS AM AND FIRST HEAVY TRUCK DRIVER WAS UNSUCCESSFUL WITH BLOOD DRAW - VANCO TROUGH LATE TO PHARMACY A RESULT. SECOND HEAVY TRUCK DRIVER WAS SUCCESSFUL BUT MEDICATION HAS NOT ARRIVE AT THIS TIME. BED LOW WITH CALL LIGHT IN REACH. WILL CONTINUE TO MONITOR AND REPORT TO ONCOMING RN.
[2022-04-14 06:31] LABS: Alanine Aminotransfer (ALT/SGP 16 U/L (12-78); Albumin, Blood 2.3 g/dL (3.4-5.0); Albumin/Globulin Ratio 0.5 (0.8-1.8); Alk Phos 67 U/L (50-136); Anion Gap 7 mmol/L (6-16); Aspartate Aminotrans (AST/SGOT 18 U/L (12-37); Bilirubin, Total 0.2 mg/dL (0.1-1.0); Blood Urea Nitrogen 26 mg/dL (8-24); CO2, Blood 21 mmol/L (21-32); Calcium, Blood 8.4 mg/dL (8.5-10.1); Chloride, Blood 109 mmol/L (98-108); Creatinine, Blood 0.93 mg/dL (0.40-1.00); Globulin, Blood 4.7 g/dL (2.2-4.0); Glomerular Filtration Rate 80 (60-); Glucose, Blood 134 mg/dL (70-99); Potassium, Blood 4.7 mmol/L (3.5-5.5); Sodium, Blood 137 mmol/L (136-145); Vancomycin, Trough 13.2 ug/mL (5.0-10.0)
--- NOTE | 2022-04-14 17:19 | NUR ---
Shift Summary Pt alert, oriented x4, calm and cooperative with care. Pt resting in bed. Up to recline with sba in room. Pt reports pain to right groin/thigh, medicated per emar. Dr Mandujano in this am for dressing changes, repacked wound and replaced dressing. Discussed pain management with Dr Jade, new orders entered by MD. Pt Denies chest pain/pressure, sob, nausea, dizziness and numb/tingling. Pt Spo2 >90% on ra, breathing shallow at times, breathing even and unlabored. Tele sb-sr 50-60's, bp stable. No bm during shift, pt states she has not eaten much in the last couple of days. Other vss. No other acute changes noted. Will continues to monitor unitl report given to oncoming rn.
--- NOTE | 2022-04-15 05:20 | NUR ---
SKEIN YARN DYER SUMMARY PT TRANSFERRED FROM PCU AT START OF SHIFT. POD1 I&D OF R INNER THIGH ABCESS. MEDICATED WITH PO HYDROCODONE WELL SOME IV DILAUDID FOR BREAKTHROUGH PAIN. PT PLEASANT AND COOPERATIVE BUT IS ANXIOUS AND EMOTIONAL AT TIMES. BARRETT CATH DRAINING YELLOW URINE. VSS, WCTM.
[2022-04-15 06:09] LABS: BASOPHILS ABSOLUTE AUTO 0.02 K/mm3 (0.00-0.23); BASOPHILS PERCENT AUTO 0 % (0-2); EOSINOPHILS ABSOLUTE AUTO 0.05 K/mm3 (0.00-0.68); EOSINOPHILS PERCENT AUTO 1 % (0-6); Hematocrit 31.6 % (33.0-51.0); IMMATURE GRAN ABSOLUTE AUTO 0.06 K/mm3 (0.00-0.10); IMMATURE GRAN PERCENT AUTO 1 % (0-1); LYMPHOCYTES ABSOLUTE AUTO 1.39 K/mm3 (0.84-5.20); LYMPHOCYTES PERCENT AUTO 19 % (21-46); MONOCYTES ABSOLUTE AUTO 0.42 K/mm3 (0.16-1.47); MONOCYTES PERCENT AUTO 6 % (4-13); Mean Corpuscular HGB 29.1 pg (26.0-34.0); Mean Corpuscular HGB Conc 31.6 g/dL (31.5-36.5); Mean Corpuscular Volume 92 fL (80-100); Mean Platelet Volume 10.1 fL (9.1-12.4); NEUTROPHILS ABSOLUTE AUTO 5.25 K/mm3 (1.96-9.15); NEUTROPHILS PERCENT AUTO 73 % (41-73); Platelet Count 220 K/mm3 (150-400); RDW Coefficient Variation 13.8 % (11.7-14.2); RDW Standard Deviation 46.8 fL (35.1-46.3); Red Blood Cell Count 3.44 M/mm3 (3.80-5.20); White Blood Cell Count 7.19 K/mm3 (4.00-11.30)
[2022-04-15 06:30] LABS: Alanine Aminotransfer (ALT/SGP 19 U/L (12-78); Albumin, Blood 2.2 g/dL (3.4-5.0); Albumin/Globulin Ratio 0.5 (0.8-1.8); Alk Phos 63 U/L (50-136); Anion Gap 6 mmol/L (6-16); Aspartate Aminotrans (AST/SGOT 21 U/L (12-37); Bilirubin, Total 0.2 mg/dL (0.1-1.0); Blood Urea Nitrogen 24 mg/dL (8-24); Bun/Creatinine Ratio 32.9 (12.0-20.0); CO2, Blood 25 mmol/L (21-32); Calcium, Blood 8.4 mg/dL (8.5-10.1); Chloride, Blood 107 mmol/L (98-108); Creatinine, Blood 0.73 mg/dL (0.40-1.00); Globulin, Blood 4.4 g/dL (2.2-4.0); Glomerular Filtration Rate 107 (60-); Glucose, Blood 113 mg/dL (70-99); Potassium, Blood 4.3 mmol/L (3.5-5.5); Sodium, Blood 138 mmol/L (136-145); Total Protein, Blood 6.6 g/dL (6.4-8.2); Vancomycin, Trough 16.1 ug/mL (5.0-10.0)
--- NOTE | 2022-04-15 07:00 | NUR ---
ASSUMED CARE OF PATIENT. PATIENT RESTING IN BED, BEDSIDE REPORT RECIEVED FROM KEITH BENJAMIN. PATIENT VOICES CONCERNS OF PAIN MANAGMENT, EMAR REVIEWED AND PLAN ESTABLISHED WITH PATIENT FOR PAIN MANAGMENT REGIMEN. NO OTHER CONCERNS AT THIS TIME. CALL LIGHT IN REACH. THIS RN CLEARED THE IV PUMP, 1276 DOCUMENTED FOR NOC SHIFT AT 0555.
--- NOTE | 2022-04-15 14:10 | NUR ---
PATIENT OUT OF ROOM IN W/C WITH FAMILY MEMBERS.
--- NOTE | 2022-04-15 15:30 | NUR ---
DR LOPEZ AT BEDSIDE, CHANGED WOUND PACKING AND DRESSING. MEDICATED WITH 1MH DILAUDID PER EMAR FOR DRESSING CHANGE.
--- NOTE | 2022-04-15 19:39 | NUR ---
SHIFT SUMAM NO ACUTE EVENTS THIS SHIFT. POD 1 I&D R INNER THIGH. PAIN MANAGED BETTER THIS SHIFT WITH CONSISTENT ORAL MAIN MEDICATION ALTHOUGH DILAUDID GIVEN X2 FOR BREAKTHROUGH PAIN. PATIENT WAS UP TO CHAIR AND WAS WHEELED OUTISE BYFAMILY X2 THIS SHIFT. DRESSING CHANGED TODAY BY DR LOPEZ. EATING AND DRINNKING WELL, DENIES N/V. BARRETT IN PLACE. CALLS APPROPRIATELY, REPORT GIVEN TO KEITH BENJAMIN.
--- NOTE | 2022-04-16 05:50 | NUR ---
REWINDER SUMMARY NO ACUTE CHANGES THIS SHIFT. PT AAOX4 AND PLEASANT. NEW IV ACCESS OBTAINED AFTER PREVIOUS IV INFILATRATED. PT UP IN ROOM WITH STANDBY ASSIST A FEW TIMES THROUGH THE NIGHT. MINIMAL DRAINAGE NOTED TO R THIGH DRESSING. PT HAD LOW GRADE TEMP WHICH RESOLVED WITH TYLENOL. VSS, WCTM.
[2022-04-16 06:28] LABS: BASOPHILS ABSOLUTE AUTO 0.01 K/mm3 (0.00-0.23); BASOPHILS PERCENT AUTO 0 % (0-2); EOSINOPHILS ABSOLUTE AUTO 0.14 K/mm3 (0.00-0.68); EOSINOPHILS PERCENT AUTO 2 % (0-6); Hematocrit 29.9 % (33.0-51.0); Hemoglobin 9.8 g/dL (11.5-16.0); IMMATURE GRAN ABSOLUTE AUTO 0.11 K/mm3 (0.00-0.10); IMMATURE GRAN PERCENT AUTO 2 % (0-1); LYMPHOCYTES ABSOLUTE AUTO 1.42 K/mm3 (0.84-5.20); LYMPHOCYTES PERCENT AUTO 21 % (21-46); MONOCYTES ABSOLUTE AUTO 0.51 K/mm3 (0.16-1.47); MONOCYTES PERCENT AUTO 8 % (4-13); Mean Corpuscular HGB 29.2 pg (26.0-34.0); Mean Corpuscular HGB Conc 32.8 g/dL (31.5-36.5); Mean Corpuscular Volume 89 fL (80-100); Mean Platelet Volume 9.7 fL (9.1-12.4); NEUTROPHILS ABSOLUTE AUTO 4.48 K/mm3 (1.96-9.15); NEUTROPHILS PERCENT AUTO 67 % (41-73); NRBC ABSOLUTE 0.03 K/mm3 (0.00-0.02); NRBC Auto 0.4 /100 WBC (0.0-0.2); Platelet Count 231 K/mm3 (150-400); RDW Coefficient Variation 13.7 % (11.7-14.2); RDW Standard Deviation 44.8 fL (35.1-46.3); Red Blood Cell Count 3.36 M/mm3 (3.80-5.20); White Blood Cell Count 6.67 K/mm3 (4.00-11.30)
[2022-04-16 06:49] LABS: Bun/Creatinine Ratio 25.5 (12.0-20.0); Calcium, Blood 8.4 mg/dL (8.5-10.1); Creatinine, Blood 0.67 mg/dL (0.40-1.00)
--- NOTE | 2022-04-16 17:00 | NUR ---
DRESSING CHANGED. GAUZE & ABD PAD IN PLACE, C/D/I.
--- NOTE | 2022-04-16 17:37 | NUR ---
SHIFT SUMMARY POD 2 I&D OF ABCESS TO RIGHT INNER THIGH. VSS ON RA. DRESSING TO RIGHT INNER THIGH REMAINS INTACT WITH LIGHT DRAINAGE PRESENT. PATIENT UP TO EDGE OF BED AND CHAIR THROUGHOUT DAY, MINIMAL ASSISTANCE REQUIRED. PAIN MANAGED WELL PER PATIENT, SEE EMAR. CALLS APPROPRIATELY, WILL REPORT TO ONCOMING RN.
--- NOTE | 2022-04-16 20:00 | NUR ---
PT ASKED FOR PAIN MEDS DURING ROUTINE VS STATING THAT SHE WAS IN TREMENDIOUS PAIN IN HER GROIN. MEDICATED WITH 1MG OF DILAUDID IVP, TOLERATED WELL. SAFETY MEASURES IN PLACE. WILL CONTINUE TO MONITOR AND ADDRESS NEEDS THEY ARISE.
[2022-04-17 06:06] LABS: BASOPHILS ABSOLUTE AUTO 0.02 K/mm3 (0.00-0.23); BASOPHILS PERCENT AUTO 0 % (0-2); EOSINOPHILS ABSOLUTE AUTO 0.11 K/mm3 (0.00-0.68); EOSINOPHILS PERCENT AUTO 1 % (0-6); Hemoglobin 9.9 g/dL (11.5-16.0); IMMATURE GRAN ABSOLUTE AUTO 0.25 K/mm3 (0.00-0.10); IMMATURE GRAN PERCENT AUTO 3 % (0-1); LYMPHOCYTES ABSOLUTE AUTO 1.33 K/mm3 (0.84-5.20); LYMPHOCYTES PERCENT AUTO 17 % (21-46); MONOCYTES ABSOLUTE AUTO 0.46 K/mm3 (0.16-1.47); MONOCYTES PERCENT AUTO 6 % (4-13); Mean Corpuscular HGB 28.9 pg (26.0-34.0); Mean Corpuscular HGB Conc 31.9 g/dL (31.5-36.5); Mean Corpuscular Volume 90 fL (80-100); Mean Platelet Volume 9.9 fL (9.1-12.4); NEUTROPHILS ABSOLUTE AUTO 5.52 K/mm3 (1.96-9.15); NEUTROPHILS PERCENT AUTO 72 % (41-73); NRBC ABSOLUTE 0.03 K/mm3 (0.00-0.02); NRBC Auto 0.4 /100 WBC (0.0-0.2); Platelet Count 258 K/mm3 (150-400); RDW Coefficient Variation 13.7 % (11.7-14.2); RDW Standard Deviation 44.9 fL (35.1-46.3); Red Blood Cell Count 3.43 M/mm3 (3.80-5.20); White Blood Cell Count 7.69 K/mm3 (4.00-11.30)
[2022-04-17 06:33] LABS: Albumin, Blood 2.1 g/dL (3.4-5.0); Albumin/Globulin Ratio 0.5 (0.8-1.8); Bilirubin, Total 0.4 mg/dL (0.1-1.0); Bun/Creatinine Ratio 18.8 (12.0-20.0); Calcium, Blood 8.5 mg/dL (8.5-10.1); Creatinine, Blood 0.64 mg/dL (0.40-1.00); Globulin, Blood 4.3 g/dL (2.2-4.0); Potassium, Blood 4.1 mmol/L (3.5-5.5); Total Protein, Blood 6.4 g/dL (6.4-8.2)
--- NOTE | 2022-04-17 07:41 | NUR ---
LYING IN SEMI FOLWERS WITH EYES CLOSED. PAIN MANAGED WITH IVP PAIN MEDS AND PO PAIN MEDS. PT ABLE TO REST WELL THIS SHIFT. DENIES FURTHER NEEDS OR WANTS AT THIS TIME. SAFETY MEASURES IN PLACE. WILL CONTINUE TO MONITOR AND ADDRESS NEEDS THEY ARISE.
--- NOTE | 2022-04-17 11:11 | NUR ---
0607-RECVD REPORT FROM PREVIOUS RN ANABEL, PT SLEEPING IN BED, BED IN LOWEST POSITION, BED RAILS UP X 2, CALL LIGHT WITHIN REACH. BARRETT CATHETER PATENT/DRAINING CLEAR YELLOW URINE 1030-EVERGRE[facility] RESIDENT ROUNDING 1045-COMPLETED DRESSING CHANGE, WET/DRY WITH 4X4 AND STERILE SALINE, DRY 4X4, ABD AND PAPER TAPE
[2022-04-17 15:09] LABS: CK-BB 0 % (0); CK-MB 0 % (0-3); CK-MM 100 % (97-100); MACRO TYPE 1 0 % (Not Observed); MACRO TYPE 2 0 % (Not Observed)
--- NOTE | 2022-04-17 18:36 | NUR ---
SHIFT SUMMARY: PT REMAINS A/O X 4, VSS, NO ACUTE CHANGES. PT UP IN CHAIR THIS SHIFT, UP IN ROOM X 3 THIS SHIFT. DRESSING/PACKING CHANGE THIS SHIFT. PERIPHERAL IV INFILTRATED. ORDER FOR PICC PLACEMENT. ACCOUNTS OFFICER ASSESSED POSSIBILITY OF POWER GLIDE. PT REFUSED. THIS RN NOTIFIED CLINICAL COORDINATOR. PT'S FAMILY VISITED THIS SHIFT X 1. PT TOLERATED PO INTAKE, DENIES N/V.
[2022-04-18 05:32] LABS: Albumin, Blood 2.2 g/dL (3.4-5.0); Anion Gap 5 mmol/L (6-16); Blood Urea Nitrogen 13 mg/dL (8-24); Bun/Creatinine Ratio 20.8 (12.0-20.0); CO2, Blood 30 mmol/L (21-32); Calcium, Blood 8.7 mg/dL (8.5-10.1); Chloride, Blood 102 mmol/L (98-108); Creatinine, Blood 0.63 mg/dL (0.40-1.00); Glomerular Filtration Rate 116 (60-); Glucose, Blood 96 mg/dL (70-99); Phosphorus, Blood 4.3 mg/dL (2.5-4.9); Potassium, Blood 4.1 mmol/L (3.5-5.5); Sodium, Blood 137 mmol/L (136-145)
--- NOTE | 2022-04-18 05:46 | NUR ---
OOB IN WHEELCHAIR ROLLING AROUND HOSPITAL IN ORDER TO GET OUT OF ROOM. PAIN MANAGED WITH PO PAIN MEDS. IVPB ABX CHANGED TO IM AND ADMINISTERED JUST BEFORE 2AM. NEXT DOSE DUE AT 2100 TODAY. DENIES FURTHER NEEDS OR WANTS AT THIS TIME. SAFETY MEASURES IN PLACE. WILL CONTINUE TO MONITOR AND ADDRESS NEEDS THEY ARISE.
[2022-04-18 06:28] LABS: BASOPHILS ABSOLUTE AUTO 0.02 K/mm3 (0.00-0.23); BASOPHILS PERCENT AUTO 0 % (0-2); EOSINOPHILS ABSOLUTE AUTO 0.12 K/mm3 (0.00-0.68); EOSINOPHILS PERCENT AUTO 2 % (0-6); Hematocrit 31.9 % (33.0-51.0); Hemoglobin 10.4 g/dL (11.5-16.0); IMMATURE GRAN PERCENT AUTO 4 % (0-1); LYMPHOCYTES ABSOLUTE AUTO 2.21 K/mm3 (0.84-5.20); LYMPHOCYTES PERCENT AUTO 28 % (21-46); MONOCYTES ABSOLUTE AUTO 0.39 K/mm3 (0.16-1.47); MONOCYTES PERCENT AUTO 5 % (4-13); Mean Corpuscular HGB 28.8 pg (26.0-34.0); Mean Corpuscular HGB Conc 32.6 g/dL (31.5-36.5); Mean Corpuscular Volume 88 fL (80-100); Mean Platelet Volume 9.7 fL (9.1-12.4); NEUTROPHILS ABSOLUTE AUTO 4.89 K/mm3 (1.96-9.15); NEUTROPHILS PERCENT AUTO 62 % (41-73); Platelet Count 322 K/mm3 (150-400); RDW Coefficient Variation 13.7 % (11.7-14.2); RDW Standard Deviation 44.7 fL (35.1-46.3); Red Blood Cell Count 3.61 M/mm3 (3.80-5.20); White Blood Cell Count 7.93 K/mm3 (4.00-11.30)
--- NOTE | 2022-04-18 09:09 | NUR ---
PT CRYING THIS AM, STATES "I'M TIRED OF BEING IN PAIN AND BEING HERE" PT REASSURED, PAIN MEDS AND AM MEDS GIVEN, DR. CHEUNG IN TO SEE PT, STILL REFUSING PICC LINE, PT ASSISTED WITH DEEP BREATHING AND CALMING TECHNIQUES, STATES FAMILY WILL BRING IN EARBUDS SO SHE CAN LISTEN TO HER MUSIC ON HER PHONE TO HELP COPE WITH THE PAIN AND STRESS OF BEING HOSPITALIZED, CONT. TO MONITOR FOR ANY CHANGES.
--- NOTE | 2022-04-18 10:57 | NUR ---
DSG CHANGED BY DR. LOPEZ, WET TO DRY DRESSING WITH GAUZE MOISTENED W/ SALINE AND COVERED WITH EXUDRY PAD, PT PRE-MEDICATED WITH 1MG IM DILAUDID PER DR. LOPEZ.
--- NOTE | 2022-04-18 12:24 | NUR ---
PT NOT IN ROOM AT THIS TIME, NOTED AMBULATING DOWN THE [place]SON PUSHING A W/C EARLIER.
--- NOTE | 2022-04-18 15:07 | NUR ---
PT CAME BACK TO ROOM WITH FAMILY FOR A SHORT WHILE THEN WENT BACK OUTSIDE, PT DENIED ANY DISCOMFORT.
--- NOTE | 2022-04-18 16:35 | NUR ---
EXUDRY PAD ON R INNER THIGH AREA NOTED SATURATED, NEW EXUDRY PAD APPLIED. PHYS. TX IN TO SEE PT.
--- NOTE | 2022-04-18 17:46 | NUR ---
SUMMARY PT CRYING THIS AM STATES DUE TO PAIN, PT CALMED DOWN AFTER MEDICATED FOR PAIN AND SOME REASSURING, DRESSING CHANGED BY DR. LOPEZ, SALINE MOISTENED GAUZE AND EXUDRY PAD, EXUDRY PAD CHANGED AGAIN LATER THIS AFTERNOON, PT HAS BEEN AMBULAITNG OUTSIDE WHILE PUSHING A W/C MOST OF THE DAY VISITING WITH FAMILY, PT EVAL DONE THIS AFTERNOON, TAKES 1 NORCO FOR PAIN, STATES PAIN IS MOSTLY ON UPPER GROIN AREA AND NOT ON OPEN AREA, DR. LOPEZ AWARE, NO OTHER CHANGES THIS SHIFT.
--- NOTE | 2022-04-19 04:50 | NUR ---
SHIFT SUMMARY A/O X4 AND IND IN THE ROOM. PT REPORTS HAVING INCREASED PAIN THIS EVENING IN HER PANNUS AREA AND SURGICAL SITE, PAIN MANAGED W/ PO AND IM PAIN MEDICATIONS PER EMAR. BARRETT PATENT TO GRAVITY. VITAL SIGNS STABLE. TOLERATING PO INTAKE. PASSING BOWEL MOVEMENTS. NO IV ACCESS AT THIS TIME. PLEASANT AND COOPERATIVE W/ CARE, WILL CONTINUE TO MONITOR AND REPORT TO ONCOMING RN.
[2022-04-19 05:19] LABS: BASOPHILS ABSOLUTE AUTO 0.02 K/mm3 (0.00-0.23); BASOPHILS PERCENT AUTO 0 % (0-2); EOSINOPHILS ABSOLUTE AUTO 0.13 K/mm3 (0.00-0.68); EOSINOPHILS PERCENT AUTO 2 % (0-6); Hematocrit 31.4 % (33.0-51.0); Mean Corpuscular HGB 28.7 pg (26.0-34.0); Mean Corpuscular HGB Conc 31.8 g/dL (31.5-36.5); Mean Corpuscular Volume 90 fL (80-100); Mean Platelet Volume 9.9 fL (9.1-12.4); Platelet Count 294 K/mm3 (150-400); RDW Coefficient Variation 13.9 % (11.7-14.2); RDW Standard Deviation 45.5 fL (35.1-46.3); Red Blood Cell Count 3.48 M/mm3 (3.80-5.20); White Blood Cell Count 6.34 K/mm3 (4.00-11.30)
[2022-04-19 05:20] LABS: IMMATURE GRAN PERCENT AUTO 5 % (0-1); LYMPHOCYTES ABSOLUTE AUTO 2.23 K/mm3 (0.84-5.20); LYMPHOCYTES PERCENT AUTO 35 % (21-46); MONOCYTES ABSOLUTE AUTO 0.42 K/mm3 (0.16-1.47); MONOCYTES PERCENT AUTO 7 % (4-13); NEUTROPHILS ABSOLUTE AUTO 3.24 K/mm3 (1.96-9.15); NEUTROPHILS PERCENT AUTO 51 % (41-73)
--- NOTE | 2022-04-19 17:54 | NUR ---
SHIFT SUMMARY: I&D RIGHT GROIN ABSCESS PATIENT IS A&OX4. VS ARE WNL AND ON RA. PAIN IS MANAGED WITH 2 NORCOS PO. RIGHT GROIN INCISION HAS WET TO DRY PACKING AND EXUDRY THAT IS C/D/I. THE DRESSING HAS BEEN CHANGED EVERY TIME PATIENT HAS USED THE BATHROOM OR WHEN SHE REQUESTS IT TO BE CHANGED. PATIENT IS INDEP. IN THE ROOM AND AMBULATES OUTSIDE INDEP. WELL. SHE IS TOLERATING PO INTAKE AND IS VOIDING/PASSING GAS. CALLS APPROPRIATELY. CALL LIGHT WITHIN REACH. THE PLAN IS FOR THE PATIENT TO BE DISCHARGED HOME WITH HOME HEALTH POSSIBLY TOMORROW BEFORE 1500 ACCORDING TO TILE BURNER.
--- NOTE | 2022-04-20 04:19 | NUR ---
SUMMARY NO NEW ISSUES NOTED. PT HAS BEEN AMBULATORY. PT PAIN MANAGED WELL WITH PO MEDS. PT HAS NO NEW CONCERNS. CALL LIGHT IN REACH.
[2022-04-20] MEDS ORDERED: HYDACE10B PO (11:05)
[2022-04-20] MEDS ORDERED: Cleocin HCl150 MG PO (11:06)
[2022-04-20] MEDS ORDERED: METR500 PO (11:06)
[2022-04-20] MEDS ORDERED: VISBIOME 112.51 EACH PO (11:07)
--- NOTE | 2022-04-20 13:00 | NUR ---
DISCHARGE VSS ON RA. WOUND HAS WET TO DRY PACKING WITH 4X4 GAUZE AND ABD PAD, C/D/I AT THIS TIME. PAIN MANAGED PER EMAR. PATIENT IND IN ROOM. DISCUSSED DISCHARGE INSTRUCTIONS. ESCORTTED OUT VIA W/C.
== END 2022-04-20 12:45 | disposition home or self-care (01) | DRG 853 ==
LOC: ER 22:58 → SURS 04-13 02:01 → PCU 04-13 02:01 → SURS 04-14 18:42
PROVIDERS: Emergency Medicine; Family Medicine; Hospitalist; Surgery; ADMIT Internal Medicine
PROC: 0JBL0ZZ Excision of Right Upper Leg Subcutaneous Tissue and Fascia, Open Approach (ICD-10-PCS; principal; 2022-04-13 15:00)
PROC: 3E03329 Introduction of Other Anti-infective into Peripheral Vein, Percutaneous Approach (ICD-10-PCS; 2022-04-13 15:00)
DX: A40.8 Other streptococcal sepsis (principal); M72.6 Necrotizing fasciitis; R65.21 Severe sepsis with septic shock; N17.9 Acute kidney failure, unspecified; L03.115 Cellulitis of right lower limb; L02.415 Cutaneous abscess of right lower limb; Z68.44 Body mass index [BMI] 60.0-69.9, adult; F41.9 Anxiety disorder, unspecified; E66.01 Morbid (severe) obesity due to excess calories; J44.9 Chronic obstructive pulmonary disease, unspecified; F31.9 Bipolar disorder, unspecified; F43.10 Post-traumatic stress disorder, unspecified; F44.81 Dissociative identity disorder; K58.9 Irritable bowel syndrome, unspecified; E11.9 Type 2 diabetes mellitus without complications; Z98.890 Other specified postprocedural states; Z90.49 Acquired absence of other specified parts of digestive tract; Z87.891 Personal history of nicotine dependence; Z88.8 Allergy status to other drugs, medicaments and biological substances; Z88.1 Allergy status to other antibiotic agents; Z88.2 Allergy status to sulfonamides; Z88.0 Allergy status to penicillin; Z91.013 Allergy to seafood; Z91.018 Allergy to other foods; Z79.899 Other long term (current) drug therapy; Z79.52 Long term (current) use of systemic steroids; Z79.01 Long term (current) use of anticoagulants; Z79.84 Long term (current) use of oral hypoglycemic drugs; Z90.710 Acquired absence of both cervix and uterus; Z87.01 Personal history of pneumonia (recurrent); Z79.02 Long term (current) use of antithrombotics/antiplatelets
CPT/HCPCS: 36415; 51702; 80048; 80053; 80069; 80202; 81001; 82550; 82552; 82947; 83036; 83605; 85025; 85651; 86140; 87040; 87070; 87071; 87075; 87076; 87086; 87185; 87205; 93005; 93010; 94640; 94664; 94760; 96365-59; 96367; 96375; 96376; 97110; 97161; 97165; 97530; 99285-25; A9270; J0330; J0690; J1100; J1170; J1335; J1644; J1815; J1885; J2185; J2250; J2405; J2704; J2795; J3010; J3370; J7030; J7040; J7060; J7120

== ENCOUNTER → 2022-05-14 | Outpatient (CLI) | payer OTHER ==
[~2022-05-14] MED LIST changes: +METR500 PO; +VISBIOME 112.51 EACH PO
[2022-05-14 16:25] LABS: BASOPHILS ABSOLUTE AUTO 0.02 K/mm3 (0.00-0.23); BASOPHILS PERCENT AUTO 0 % (0-2); EOSINOPHILS ABSOLUTE AUTO 0.11 K/mm3 (0.00-0.68); EOSINOPHILS PERCENT AUTO 2 % (0-6); Hematocrit 36.5 % (33.0-51.0); Hemoglobin 11.8 g/dL (11.5-16.0); IMMATURE GRAN ABSOLUTE AUTO 0.03 K/mm3 (0.00-0.10); IMMATURE GRAN PERCENT AUTO 1 % (0-1); LYMPHOCYTES ABSOLUTE AUTO 1.74 K/mm3 (0.84-5.20); LYMPHOCYTES PERCENT AUTO 37 % (21-46); MONOCYTES ABSOLUTE AUTO 0.31 K/mm3 (0.16-1.47); MONOCYTES PERCENT AUTO 7 % (4-13); Mean Corpuscular HGB 28.9 pg (26.0-34.0); Mean Corpuscular HGB Conc 32.3 g/dL (31.5-36.5); Mean Corpuscular Volume 90 fL (80-100); Mean Platelet Volume 10.8 fL (9.1-12.4); NEUTROPHILS ABSOLUTE AUTO 2.51 K/mm3 (1.96-9.15); NEUTROPHILS PERCENT AUTO 53 % (41-73); Platelet Count 172 K/mm3 (150-400); RDW Coefficient Variation 13.7 % (11.7-14.2); RDW Standard Deviation 44.7 fL (35.1-46.3); Red Blood Cell Count 4.08 M/mm3 (3.80-5.20); White Blood Cell Count 4.72 K/mm3 (4.00-11.30)
[2022-05-14 16:37] LABS: Bun/Creatinine Ratio 33.3 (12.0-20.0); Calcium, Blood 9.6 mg/dL (8.5-10.1); Creatinine, Blood 0.9 mg/dL (0.40-1.00); Potassium, Blood 4.6 mmol/L (3.5-5.5)
[2022-05-14 16:45] LABS: CHOL/HDL RATIO 3.7; Cholesterol 223 mg/dL (50-200); HDL Cholesterol 61 mg/dL (>39); LDL/HDL RATIO 1.8; Low Density Lipoprotein Chol 113 mg/dL (0-110); Triglycerides 246 mg/dL (30-140); Very Low Density Lipoprot Chol 49 mg/dL (6-28)
[2022-05-15 05:09] LABS: ESTRADIOL 91.9 pg/mL (.)
== END | disposition home or self-care (01) ==
LOC: LAB SHORT 14:35 → LAB 14:35
PROVIDERS: Family Medicine; Internal Medicine
DX: L68.9 Hypertrichosis, unspecified (principal); R60.0 Localized edema
CPT/HCPCS: 80048; 80061; 82627; 82670; 84443; 85025

== ENCOUNTER 2022-06-30 02:22 | Day surgery (SDC) | payer OTHER | END 2022-06-30 22:43 | disposition home or self-care (01) | LOC: WOUND 02:22 | DX: S71.101A Unspecified open wound, right thigh, initial encounter (principal); E11.9 Type 2 diabetes mellitus without complications; E66.9 Obesity, unspecified; Z68.43 Body mass index [BMI] 50.0-59.9, adult; I87.2 Venous insufficiency (chronic) (peripheral) | CPT/HCPCS: G0463 ==

== ENCOUNTER 2022-07-27 08:00 | Day surgery (SDC) | payer OTHER | END 2022-07-27 23:59 | disposition home or self-care (01) | LOC: WOUND 08:00 | DX: T81.41XA Infection following a procedure, superficial incisional surgical site, initial encounter (principal); L97.112 Non-pressure chronic ulcer of right thigh with fat layer exposed | CPT/HCPCS: A9270; G0463 ==

== ENCOUNTER 2022-08-10 00:21 | Day surgery (SDC) | payer OTHER | END 2022-08-10 22:54 | disposition home or self-care (01) | LOC: WOUND 00:21 | DX: T81.41XA Infection following a procedure, superficial incisional surgical site, initial encounter (principal); L03.314 Cellulitis of groin; L97.112 Non-pressure chronic ulcer of right thigh with fat layer exposed | CPT/HCPCS: A9270; G0463 ==

== ENCOUNTER 2022-08-24 02:49 | Day surgery (SDC) | payer OTHER | END 2022-08-24 22:59 | disposition home or self-care (01) | LOC: WOUND 02:49 | DX: L97.112 Non-pressure chronic ulcer of right thigh with fat layer exposed (principal); S71.101D Unspecified open wound, right thigh, subsequent encounter; X58.XXXD Exposure to other specified factors, subsequent encounter | CPT/HCPCS: G0463 ==

== ENCOUNTER 2022-09-09 01:22 | Day surgery (SDC) | payer OTHER | END 2022-09-09 22:51 | disposition home or self-care (01) | LOC: WOUND 01:22 | DX: L97.112 Non-pressure chronic ulcer of right thigh with fat layer exposed (principal); S71.101D Unspecified open wound, right thigh, subsequent encounter | CPT/HCPCS: G0463 ==

== ENCOUNTER 2022-10-07 02:39 | Day surgery (SDC) | payer OTHER | END 2022-10-07 23:06 | disposition home or self-care (01) | LOC: WOUND 02:39 | DX: T81.31XA Disruption of external operation (surgical) wound, not elsewhere classified, initial encounter (principal); L03.314 Cellulitis of groin; E11.9 Type 2 diabetes mellitus without complications; E66.9 Obesity, unspecified; G47.33 Obstructive sleep apnea (adult) (pediatric); J44.9 Chronic obstructive pulmonary disease, unspecified; I73.9 Peripheral vascular disease, unspecified | CPT/HCPCS: G0463 ==

== ENCOUNTER 2022-10-11 12:15 | Day surgery (SDC) | payer OTHER | END 2022-10-11 22:52 | disposition home or self-care (01) | LOC: WOUND 12:15 | DX: T81.41XA Infection following a procedure, superficial incisional surgical site, initial encounter (principal); L03.314 Cellulitis of groin; L97.112 Non-pressure chronic ulcer of right thigh with fat layer exposed; E11.622 Type 2 diabetes mellitus with other skin ulcer; J44.9 Chronic obstructive pulmonary disease, unspecified; E11.51 Type 2 diabetes mellitus with diabetic peripheral angiopathy without gangrene; Z87.891 Personal history of nicotine dependence; G47.33 Obstructive sleep apnea (adult) (pediatric) | CPT/HCPCS: G0463 ==

== ENCOUNTER 2022-10-18 00:22 | Day surgery (SDC) | payer OTHER | END 2022-10-18 22:53 | disposition home or self-care (01) | LOC: WOUND 00:22 | DX: T81.31XA Disruption of external operation (surgical) wound, not elsewhere classified, initial encounter (principal); L03.314 Cellulitis of groin; L97.112 Non-pressure chronic ulcer of right thigh with fat layer exposed; E11.622 Type 2 diabetes mellitus with other skin ulcer; S71.101A Unspecified open wound, right thigh, initial encounter; J44.9 Chronic obstructive pulmonary disease, unspecified; E11.51 Type 2 diabetes mellitus with diabetic peripheral angiopathy without gangrene ==

== ENCOUNTER 2022-11-05 01:35 | Day surgery (SDC) | payer OTHER | END 2022-11-05 23:07 | disposition home or self-care (01) | LOC: WOUND 01:35 | DX: L97.112 Non-pressure chronic ulcer of right thigh with fat layer exposed (principal); S71.101D Unspecified open wound, right thigh, subsequent encounter | CPT/HCPCS: G0463 ==

== ENCOUNTER 2022-12-03 02:17 | Day surgery (SDC) | payer OTHER | END 2022-12-03 22:46 | disposition home or self-care (01) | LOC: WOUND 02:17 | DX: T81.41XA Infection following a procedure, superficial incisional surgical site, initial encounter (principal); G47.33 Obstructive sleep apnea (adult) (pediatric); E11.51 Type 2 diabetes mellitus with diabetic peripheral angiopathy without gangrene; L03.314 Cellulitis of groin | CPT/HCPCS: A9270; G0463 ==

== ENCOUNTER 2022-12-22 02:22 | Day surgery (SDC) | payer OTHER | END 2022-12-22 22:39 | disposition home or self-care (01) | LOC: WOUND 02:22 | DX: S31.103A Unspecified open wound of abdominal wall, right lower quadrant without penetration into peritoneal cavity, initial encounter (principal); L03.314 Cellulitis of groin; L97.112 Non-pressure chronic ulcer of right thigh with fat layer exposed; S71.101D Unspecified open wound, right thigh, subsequent encounter; X58.XXXA Exposure to other specified factors, initial encounter | CPT/HCPCS: G0463 ==

== ENCOUNTER 2023-01-06 09:44 | Day surgery (SDC) | payer OTHER | END 2023-01-06 23:18 | disposition home or self-care (01) | LOC: WOUND 09:44 | DX: L97.112 Non-pressure chronic ulcer of right thigh with fat layer exposed (principal); S71.101D Unspecified open wound, right thigh, subsequent encounter; S31.103D Unspecified open wound of abdominal wall, right lower quadrant without penetration into peritoneal cavity, subsequent encounter; X58.XXXD Exposure to other specified factors, subsequent encounter; E66.9 Obesity, unspecified; Z68.43 Body mass index [BMI] 50.0-59.9, adult; G47.33 Obstructive sleep apnea (adult) (pediatric); J44.9 Chronic obstructive pulmonary disease, unspecified; F17.290 Nicotine dependence, other tobacco product, uncomplicated | CPT/HCPCS: A9270; G0463 ==

== ENCOUNTER → 2023-02-09 | Outpatient (CLI) | payer OTHER | END | disposition home or self-care (01) | LOC: LAB 13:42 → LAB SHORT 13:42 | DX: T14.8XXS Other injury of unspecified body region, sequela (principal) | CPT/HCPCS: 87070; 87075; 87076; 87147; 87185; 87205 ==

== ENCOUNTER → 2023-02-28 | Outpatient (CLI) | payer OTHER ==
[2023-03-01 10:39] LABS: Candida species (DNA Probe) Negative (NEGATIVE); G. vaginalis (DNA Probe) Negative (NEGATIVE); T. vaginalis (DNA Probe) Negative (NEGATIVE)
[2023-03-02 09:09] LABS: CHLAMYDIA TRACHOMATIS, NAA Negative (Negative)
== END ==
LOC: LAB SHORT 13:07 → LAB 13:07
PROVIDERS: Family Medicine
DX: R30.0 Dysuria (principal)
CPT/HCPCS: 87480; 87491; 87510; 87591; 87660

== ENCOUNTER 2023-03-17 01:32 | Day surgery (SDC) | payer OTHER | END 2023-03-17 22:41 | disposition home or self-care (01) | LOC: WOUND 01:32 | DX: L89.892 Pressure ulcer of other site, stage 2 (principal); S31.103D Unspecified open wound of abdominal wall, right lower quadrant without penetration into peritoneal cavity, subsequent encounter; L03.314 Cellulitis of groin; S31.109D Unspecified open wound of abdominal wall, unspecified quadrant without penetration into peritoneal cavity, subsequent encounter; L97.112 Non-pressure chronic ulcer of right thigh with fat layer exposed; S71.101D Unspecified open wound, right thigh, subsequent encounter; S31.105D Unspecified open wound of abdominal wall, periumbilic region without penetration into peritoneal cavity, subsequent encounter; L73.9 Follicular disorder, unspecified; X58.XXXD Exposure to other specified factors, subsequent encounter | CPT/HCPCS: A9270; G0463 ==

== ENCOUNTER 2023-03-24 01:06 | Day surgery (SDC) | payer OTHER | END 2023-03-24 22:35 | disposition home or self-care (01) | LOC: WOUND 01:06 | DX: L97.112 Non-pressure chronic ulcer of right thigh with fat layer exposed (principal); S71.101D Unspecified open wound, right thigh, subsequent encounter; S31.105D Unspecified open wound of abdominal wall, periumbilic region without penetration into peritoneal cavity, subsequent encounter; S21.002D Unspecified open wound of left breast, subsequent encounter; X58.XXXD Exposure to other specified factors, subsequent encounter; L73.9 Follicular disorder, unspecified | CPT/HCPCS: G0463 ==

== ENCOUNTER 2023-03-31 03:08 | Day surgery (SDC) | payer OTHER | END 2023-03-31 22:38 | disposition home or self-care (01) | LOC: WOUND 03:08 | DX: L97.112 Non-pressure chronic ulcer of right thigh with fat layer exposed (principal); S71.101D Unspecified open wound, right thigh, subsequent encounter; X58.XXXD Exposure to other specified factors, subsequent encounter; S31.105S Unspecified open wound of abdominal wall, periumbilic region without penetration into peritoneal cavity, sequela; X58.XXXS Exposure to other specified factors, sequela; S21.002A Unspecified open wound of left breast, initial encounter; X58.XXXA Exposure to other specified factors, initial encounter; L73.9 Follicular disorder, unspecified | CPT/HCPCS: A9270; G0463 ==

== ENCOUNTER → 2023-04-05 | Outpatient (CLI) | payer OTHER ==
[2023-04-06 09:47] LABS: BASOPHILS ABSOLUTE AUTO 0.02 K/mm3 (0.00-0.23); BASOPHILS PERCENT AUTO 0 % (0-2); EOSINOPHILS ABSOLUTE AUTO 0.12 K/mm3 (0.00-0.68); EOSINOPHILS PERCENT AUTO 2 % (0-6); Hematocrit 43.7 % (33.0-51.0); IMMATURE GRAN ABSOLUTE AUTO 0.03 K/mm3 (0.00-0.10); IMMATURE GRAN PERCENT AUTO 1 % (0-1); LYMPHOCYTES ABSOLUTE AUTO 2.07 K/mm3 (0.84-5.20); LYMPHOCYTES PERCENT AUTO 35 % (21-46); MONOCYTES ABSOLUTE AUTO 0.43 K/mm3 (0.16-1.47); MONOCYTES PERCENT AUTO 7 % (4-13); Mean Corpuscular HGB 28.9 pg (26.0-34.0); Mean Corpuscular Volume 90 fL (80-100); Mean Platelet Volume 10.9 fL (9.1-12.4); NEUTROPHILS ABSOLUTE AUTO 3.33 K/mm3 (1.96-9.15); NEUTROPHILS PERCENT AUTO 56 % (41-73); Platelet Count 215 K/mm3 (150-400); RDW Coefficient Variation 16.3 % (11.7-14.2); RDW Standard Deviation 53.2 fL (35.1-46.3); Red Blood Cell Count 4.84 M/mm3 (3.80-5.20)
[2023-04-06 10:53] LABS: Albumin, Blood 3.6 g/dL (3.4-5.0); Albumin/Globulin Ratio 0.9 (0.8-1.8); Bilirubin, Total 0.3 mg/dL (0.1-1.0); Bun/Creatinine Ratio 15.9 (12.0-20.0); Calcium, Blood 9.2 mg/dL (8.5-10.1); Creatinine, Blood 0.76 mg/dL (0.40-1.00); Potassium, Blood 3.7 mmol/L (3.5-5.5); Thyroid Stimulating Hormone 1.55 uIU/mL (0.360-4.800); Total Protein, Blood 7.6 g/dL (6.4-8.2)
== END ==
LOC: LAB SHORT 16:40 → LAB 16:40
PROVIDERS: Family Medicine
DX: E66.9 Obesity, unspecified (principal)
CPT/HCPCS: 80053; 83036; 84443; 85025

== ENCOUNTER 2023-04-08 02:53 | Day surgery (SDC) | payer OTHER | END 2023-04-08 22:44 | disposition home or self-care (01) | LOC: WOUND 02:53 | DX: T81.41XA Infection following a procedure, superficial incisional surgical site, initial encounter (principal); L97.112 Non-pressure chronic ulcer of right thigh with fat layer exposed; S71.101D Unspecified open wound, right thigh, subsequent encounter; S31.105S Unspecified open wound of abdominal wall, periumbilic region without penetration into peritoneal cavity, sequela; L73.9 Follicular disorder, unspecified | CPT/HCPCS: A9270; G0463 ==

== ENCOUNTER 2023-04-14 02:33 | Day surgery (SDC) | payer OTHER | END 2023-04-14 23:33 | disposition home or self-care (01) | LOC: WOUND 02:33 | DX: L97.112 Non-pressure chronic ulcer of right thigh with fat layer exposed (principal); S21.002A Unspecified open wound of left breast, initial encounter; X58.XXXA Exposure to other specified factors, initial encounter; S71.101D Unspecified open wound, right thigh, subsequent encounter; X58.XXXD Exposure to other specified factors, subsequent encounter; S31.105S Unspecified open wound of abdominal wall, periumbilic region without penetration into peritoneal cavity, sequela; X58.XXXS Exposure to other specified factors, sequela; L73.9 Follicular disorder, unspecified; E66.9 Obesity, unspecified; Z68.43 Body mass index [BMI] 50.0-59.9, adult; G47.33 Obstructive sleep apnea (adult) (pediatric); J44.9 Chronic obstructive pulmonary disease, unspecified; Z87.891 Personal history of nicotine dependence | CPT/HCPCS: A9270; G0463 ==

== ENCOUNTER 2023-04-29 02:25 | Day surgery (SDC) | payer OTHER | END 2023-04-29 22:53 | disposition home or self-care (01) | LOC: WOUND 02:25 | DX: L03.314 Cellulitis of groin (principal); E66.9 Obesity, unspecified; Z68.43 Body mass index [BMI] 50.0-59.9, adult; J44.9 Chronic obstructive pulmonary disease, unspecified; E11.51 Type 2 diabetes mellitus with diabetic peripheral angiopathy without gangrene; G47.33 Obstructive sleep apnea (adult) (pediatric); Z87.891 Personal history of nicotine dependence; E11.622 Type 2 diabetes mellitus with other skin ulcer; L97.112 Non-pressure chronic ulcer of right thigh with fat layer exposed; S71.101D Unspecified open wound, right thigh, subsequent encounter; S31.105S Unspecified open wound of abdominal wall, periumbilic region without penetration into peritoneal cavity, sequela; S21.002A Unspecified open wound of left breast, initial encounter; L73.9 Follicular disorder, unspecified | CPT/HCPCS: A9270; G0463 ==

== ENCOUNTER 2023-05-04 08:00 | Day surgery (SDC) | payer OTHER | END 2023-05-04 23:59 | disposition home or self-care (01) | LOC: WOUND 08:00 | DX: S31.100A Unspecified open wound of abdominal wall, right upper quadrant without penetration into peritoneal cavity, initial encounter (principal); S31.104A Unspecified open wound of abdominal wall, left lower quadrant without penetration into peritoneal cavity, initial encounter; S31.103A Unspecified open wound of abdominal wall, right lower quadrant without penetration into peritoneal cavity, initial encounter; S31.109A Unspecified open wound of abdominal wall, unspecified quadrant without penetration into peritoneal cavity, initial encounter; T81.89XA Other complications of procedures, not elsewhere classified, initial encounter; L03.314 Cellulitis of groin; L97.112 Non-pressure chronic ulcer of right thigh with fat layer exposed; L73.9 Follicular disorder, unspecified; X58.XXXA Exposure to other specified factors, initial encounter; Y83.8 Other surgical procedures as the cause of abnormal reaction of the patient, or of later complication, without mention of misadventure at the time of the procedure | CPT/HCPCS: A9270 ==

== ENCOUNTER 2023-05-13 00:51 | Day surgery (SDC) | payer OTHER | END 2023-05-13 22:35 | disposition home or self-care (01) | LOC: WOUND 00:51 | DX: S30.811A Abrasion of abdominal wall, initial encounter (principal); S31.100A Unspecified open wound of abdominal wall, right upper quadrant without penetration into peritoneal cavity, initial encounter; S31.103A Unspecified open wound of abdominal wall, right lower quadrant without penetration into peritoneal cavity, initial encounter; L03.314 Cellulitis of groin; L73.9 Follicular disorder, unspecified; G47.33 Obstructive sleep apnea (adult) (pediatric); J44.9 Chronic obstructive pulmonary disease, unspecified; E11.51 Type 2 diabetes mellitus with diabetic peripheral angiopathy without gangrene; Z87.891 Personal history of nicotine dependence; X58.XXXA Exposure to other specified factors, initial encounter | CPT/HCPCS: 87071; 87075; 87147; 87205; 99406; A9270 ==

== ENCOUNTER → 2023-07-14 | Outpatient (CLI) | payer OTHER ==
[2023-07-14 16:14] LABS: Hemoglobin 12.1 g/dL (11.5-16.0); Mean Corpuscular HGB 28.1 pg (26.0-34.0); Mean Corpuscular Volume 91 fL (80-100); Platelet Count 283 K/mm3 (150-400); RDW Coefficient Variation 16.6 % (11.7-14.2); RDW Standard Deviation 55.1 fL (35.1-46.3); Red Blood Cell Count 4.31 M/mm3 (3.80-5.20); White Blood Cell Count 7.95 K/mm3 (4.00-11.30)
[2023-07-14 16:43] LABS: BASOPHILS PERCENT MAN 0 % (0-2); EOSINOPHILS ABSOLUTE MAN 0.07 K/mm3 (0.00-0.68); EOSINOPHILS PERCENT MAN 1 % (0-6); LYMPHOCYTES ABSOLUTE MAN 2.14 K/mm3 (0.84-5.20); LYMPHOCYTES PERCENT MAN 27 % (21-46); MONOCYTES ABSOLUTE MAN 0.71 K/mm3 (0.16-1.47); MONOCYTES PERCENT MAN 9 % (4-13); SEG NEUTROPHILS PERCENT MAN 63 % (41-73); TOTAL CELLS COUNTED 100
== END | disposition home or self-care (01) ==
LOC: LAB 13:58 → LAB SHORT 13:58
PROVIDERS: Family Medicine
DX: T07.XXXA Unspecified multiple injuries, initial encounter (principal)
CPT/HCPCS: 85007; 85027; 85651; 86140

== ENCOUNTER → 2023-08-19 | Outpatient (CLI) | payer OTHER | LOC: LAB SHORT 17:23 → LAB 17:23 | DX: T14.8XXS Other injury of unspecified body region, sequela (principal) | CPT/HCPCS: 87070; 87075; 87076; 87077; 87185; 87186; 87205 ==

== ENCOUNTER 2025-03-22 01:47 | Day surgery (SDC) | payer OTHER ==
[2025-03-22] MEDS ORDERED: Miconazole Nitrate 2% 85 GM PWD ONE (14:30)
== END 2025-03-22 23:00 | disposition home or self-care (01) ==
LOC: WOUND 01:47
DX: L73.2 Hidradenitis suppurativa (principal); E11.622 Type 2 diabetes mellitus with other skin ulcer; L98.492 Non-pressure chronic ulcer of skin of other sites with fat layer exposed; E11.40 Type 2 diabetes mellitus with diabetic neuropathy, unspecified; E11.51 Type 2 diabetes mellitus with diabetic peripheral angiopathy without gangrene; I87.2 Venous insufficiency (chronic) (peripheral); I89.0 Lymphedema, not elsewhere classified; I48.20 Chronic atrial fibrillation, unspecified; J44.9 Chronic obstructive pulmonary disease, unspecified; F17.290 Nicotine dependence, other tobacco product, uncomplicated; E66.9 Obesity, unspecified; Z68.44 Body mass index [BMI] 60.0-69.9, adult; Z88.0 Allergy status to penicillin; Z88.1 Allergy status to other antibiotic agents; Z88.2 Allergy status to sulfonamides; Z88.8 Allergy status to other drugs, medicaments and biological substances; Z91.013 Allergy to seafood; Z91.018 Allergy to other foods
CPT/HCPCS: A6213; A9270; G0463